=== PATIENT | female | born 1970 | race Caucasian/White ===

== ENCOUNTER 2019-01-28 11:50 | Emergency (ER) | payer MEDICAID ==
[~2019-01-28] VITALS: Ht 157.5 cm; Wt 77.3 kg
[~2019-01-28 11:50] MED LIST: AMLO10TA PO; AMLO10TA13 PO; CARV25TA2 PO; CLON0.1T20 PO; LISI-600 PO; POTA-82 PO; SPIR25TA5 PO
[2019-01-28 12:02] VITALS: BP 186/109
[2019-01-28] MEDS ORDERED: DOXY100C43 PO (13:05)
== END 2019-01-28 13:19 | disposition home or self-care (01) ==
LOC: ER 11:50
DX: L03.115 Cellulitis of right lower limb (principal); I10 Essential (primary) hypertension; F12.90 Cannabis use, unspecified, uncomplicated; Z90.710 Acquired absence of both cervix and uterus; Z88.1 Allergy status to other antibiotic agents; Z91.018 Allergy to other foods; Z79.899 Other long term (current) drug therapy
CPT/HCPCS: 99283

== ENCOUNTER 2019-06-24 08:47 | Inpatient (IN) | payer MEDICAID ==
[~2019-06-24] VITALS: Ht 160 cm; Wt 70.9 kg
[~2019-06-24 08:47] MED LIST changes: +CLON0.1T2 PO; -CLON0.1T20 PO
[2019-06-24] MEDS ORDERED: aspirin 81mg tab.chew PO ONE (09:05)
[2019-06-24 09:47] LABS: BASOPHILS # (AUTO) 0.1 X10'3 (0-0.2); BASOPHILS % (AUTO) 0.8 % (0-1); EOSINOPHILS # (AUTO) 1.2 X10'3 (0-0.9); HEMATOCRIT 38.7 % (35.0-45.0); HEMOGLOBIN 12.4 g/dl (12.0-16.0); LYMPHOCYTES # (AUTO) 2.2 X10'3 (1.1-4.8); LYMPHOCYTES % (AUTO) 16.3 % (21-51); MEAN CORPUSCULAR HEMOGLOBIN 25.5 PG (27.0-31.0); MEAN CORPUSCULAR HGB CONC 32.1 g/dL (33.0-36.5); MEAN CORPUSCULAR VOLUME 79.6 FL (78-98); MONOCYTES # (AUTO) 0.7 X10'3 (0-0.9); MONOCYTES % (AUTO) 5.1 % (2-12); NEUTROPHILS # (AUTO) 9.2 X10'3 (1.8-7.7); NEUTROPHILS % (AUTO) 68.8 % (42-75); PLATELET COUNT 277 X10'3 (140-440); RED BLOOD COUNT 4.86 X10'6 (4.20-5.60); RED CELL DISTRIBUTION WIDTH 17.5 % (11.5-14.5); WHITE BLOOD COUNT 13.4 X10'3 (4.5-11.0)
[2019-06-24 09:57] LABS: D-DIMER 1.43 MG/L FEU (0-0.50); PARTIAL THROMBOPLASTIN TIME 27 SECONDS (22-32)
[2019-06-24 09:58] LABS: ALANINE AMINOTRANSFERASE 31 U/L (12-78); ALBUMIN 2.8 G/DL (3.4-5.0); ALBUMIN/GLOBULIN RATIO 0.8 (1.1-1.5); ALKALINE PHOSPHATASE 99 IU/L (46-116); ANION GAP 7 (8-16); ASPARTATE AMINO TRANSFERASE 27 U/L (10-37); BILIRUBIN,TOTAL 0.7 MG/DL (0.1-1.0); BLOOD UREA NITROGEN 29 MG/DL (7-18); BUN/CREATININE RATIO 22.3 (6.6-38.0); CALCIUM 8.5 MG/DL (8.5-10.1); CHLORIDE 102 MMOL/L (99-107); GLUCOSE 226 MG/DL (70-104); POTASSIUM 3.5 MMOL/L (3.5-5.1); SODIUM 136 MMOL/L (135-145); TOTAL CARBON DIOXIDE 26.6 MMOL/L (24-32); TOTAL PROTEIN 6.4 G/DL (6.4-8.2); eGFR 44 ML/MIN
[2019-06-24] MEDS ORDERED: heparin 10,000 units/1 ML INJ IV PRN ×2 (10:05→21:55)
[2019-06-24] MEDS ORDERED: hydrALAZINE 20mg/ml inj. IV ONE (10:05)
[2019-06-24] MEDS ORDERED: heparin 25,000 UNIT/250ml bag 250 ML IV SCH (10:05)
[2019-06-24] MEDS: heparin 10,000 units/1 ML INJ IV ONE ×2 (10:22→10:24)
[2019-06-24] MEDS ORDERED: iohexol 350MG/ML 100ml bottle IV ONE (10:23)
[2019-06-24] MEDS ORDERED: morphine 4 MG/ML inj SYRINge IV ONE (11:00)
[2019-06-24] MEDS ORDERED: ondansetron/PF 4mg/2ml inj IV ONE (11:00)
[2019-06-24] MEDS ORDERED: magnesium Cl slow-release 64mg tablet PO PRN (13:10)
[2019-06-24] MEDS ORDERED: glucagon, human recombinant 1mg kit SUBCUT PRN (13:10)
[2019-06-24] MEDS ORDERED: albuterol 2.5 MG/3 ML nebule NEB PRN ×2 (13:10)
[2019-06-24] MEDS ORDERED: dextrose ORAL solution 15 GM/59 ML bottle PO PRN ×2 (13:10)
[2019-06-24] MEDS ORDERED: ondansetron/PF 4mg/2ml inj IV PRN (13:10)
[2019-06-24] MEDS ORDERED: insulin Lispro (HumaLOG) vial - multi-dose SQ SCH (13:10)
[2019-06-24] MEDS ORDERED: dextrose 50%-water 50ml dispensing syringe IV PRN ×2 (13:10)
[2019-06-24] MEDS ORDERED: magnesium 2GM in 50ml NS 50 ML IV PRN (13:10)
[2019-06-24] MEDS ORDERED: potassium Cl 20 mEq SR tablet PO PRN (13:10)
[2019-06-24] MEDS ORDERED: acetaminophen 325mg tablet PO PRN (13:10)
[2019-06-24] MEDS ORDERED: MESSAGE TO PHARMACY PO ONE (13:10)
[2019-06-24] MEDS ORDERED: potassium CL 10mEq/100ml bag 100 ML IV PRN ×2 (13:10)
[2019-06-24] MEDS ORDERED: magnesium 4gm in 100ml NS 100 ML IV PRN (13:10)
--- NOTE | 2019-06-24 13:15 | NUR ---
pt. o2 levels started to drop on RA at 84%, notified and placed on 4 liters of oxygen, sats when up to 96% via NC
[2019-06-24] MEDS ORDERED: NO HOME MEDS (14:31)
--- NOTE | 2019-06-24 14:44 | NUR ---
Tried to call report to PCU, the RN receiving patient will call back in 5 minutes.
[2019-06-24 15:00] VITALS: BP 170/108
--- NOTE | 2019-06-24 15:00 | NUR ---
Pt arrived to unit to room 3020 at 1500. Pt oriented to room and call light. Pt alert and oriented and vitals WNL.
--- NOTE | 2019-06-24 15:58 | NUR ---
PAGER ID: [phone] MESSAGE: Re: Patsy Leslie. Room: 3020. Pt's BP 170/109. Pt takes no BP meds at home. -Garry [facility] #[id number] -Dr. Emery paged concerning Pt's blood pressure
[2019-06-24] MEDS: lisinopril 5mg tablet PO SCH (16:42)
[2019-06-24 18:00] VITALS: BP 151/85
--- NOTE | 2019-06-24 18:21 | NUR ---
Patient in room PCU 3020. I have received report from aGrry GIL and had the opportunity to ask questions and assume patient care.
--- NOTE | 2019-06-24 18:35 | NUR ---
Problems reprioritized. Patient report given, questions answered & plan of care reviewed with Franc GIL.
[2019-06-24] MEDS: K and/or MAG REPLACEMENT MC SCH (19:07)
[2019-06-24] MEDS: carVEDilol 3.125mg tablet PO SCH (19:20)
[2019-06-24] MEDS: furosemide 10 MG/1 ML 10ml inj IV SCH (19:20)
--- NOTE | 2019-06-24 20:20 | NUR ---
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
[2019-06-24] MEDS: insulin glargine (Lantus) pen - multi-dose SQ SCH (21:00)
[2019-06-24] MEDS ORDERED: nystatin 15 GM powder TP PRN (21:55)
[2019-06-24 22:00] VITALS: BP 114/70
[2019-06-24] MEDS: HYDROcodone/acetaminophen 5mg/325mg tablet PO PRN (22:37)
[2019-06-24] MEDS: nicotine 14mg patch - 24hr TD SCH (22:37)
[2019-06-25] MEDS: heparin 25,000 UNIT/250ml bag 250 ML IV SCH ×3 (00:40→08:58)
[2019-06-25 02:00] VITALS: BP 160/97
--- NOTE | 2019-06-25 06:00 | NUR ---
Patient resting in bed, offers no complaints, unlabored respirations, heparin gtt at 1500, will continue to monitor.
[2019-06-25 06:08] LABS: BASOPHILS # (AUTO) 0.1 X10'3 (0-0.2); BASOPHILS % (AUTO) 1.1 % (0-1); EOSINOPHILS # (AUTO) 1.9 X10'3 (0-0.9); EOSINOPHILS % (AUTO) 14.5 % (0-6); HEMATOCRIT 36.3 % (35.0-45.0); HEMOGLOBIN 11.7 g/dl (12.0-16.0); LYMPHOCYTES # (AUTO) 2.6 X10'3 (1.1-4.8); LYMPHOCYTES % (AUTO) 20.2 % (21-51); MEAN CORPUSCULAR HEMOGLOBIN 25.6 PG (27.0-31.0); MEAN CORPUSCULAR HGB CONC 32.2 g/dL (33.0-36.5); MEAN CORPUSCULAR VOLUME 79.5 FL (78-98); MEAN PLATELET VOLUME 8.8 FL (7.4-10.4); MONOCYTES # (AUTO) 0.6 X10'3 (0-0.9); NEUTROPHILS # (AUTO) 7.5 X10'3 (1.8-7.7); NEUTROPHILS % (AUTO) 59.2 % (42-75); PLATELET COUNT 261 X10'3 (140-440); RED BLOOD COUNT 4.57 X10'6 (4.20-5.60); RED CELL DISTRIBUTION WIDTH 17.2 % (11.5-14.5); WHITE BLOOD COUNT 12.7 X10'3 (4.5-11.0)
[2019-06-25 06:26] LABS: ALBUMIN 2.6 G/DL (3.4-5.0); ANION GAP 6 (8-16); BLOOD UREA NITROGEN 25 MG/DL (7-18); BUN/CREATININE RATIO 20.2 (6.6-38.0); CALCIUM 8.5 MG/DL (8.5-10.1); CHLORIDE 101 MMOL/L (99-107); CREATININE 1.24 MG/DL (0.40-0.90); GLUCOSE 154 MG/DL (70-104); MAGNESIUM 1.8 MG/DL (1.5-2.4); POTASSIUM 3.4 MMOL/L (3.5-5.1); SODIUM 137 MMOL/L (135-145); TOTAL CARBON DIOXIDE 29.9 MMOL/L (24-32); eGFR 47 ML/MIN
--- NOTE | 2019-06-25 06:37 | NUR ---
Problems reprioritized. Patient report given, questions answered & plan of care reviewed with Anastasia GIL.
[2019-06-25 07:00] VITALS: BP 141/85
[2019-06-25] MEDS ORDERED: nicotine 14mg patch - 24hr TD SCH (08:00)
[2019-06-25] MEDS: K and/or MAG REPLACEMENT MC SCH ×2 (08:00→20:49)
[2019-06-25] MEDS: lisinopril 5mg tablet PO SCH (08:49)
[2019-06-25] MEDS: furosemide 10 MG/1 ML 10ml inj IV SCH ×2 (08:49→21:01)
[2019-06-25] MEDS: carVEDilol 3.125mg tablet PO SCH ×2 (08:49→21:01)
[2019-06-25] MEDS: nicotine 14mg patch - 24hr TD SCH (08:50)
[2019-06-25] MEDS: potassium Cl 20 mEq SR tablet PO PRN ×2 (08:51→21:01)
[2019-06-25] MEDS: HYDROcodone/acetaminophen 5mg/325mg tablet PO PRN ×2 (09:00→16:21)
--- NOTE | 2019-06-25 10:01 | NUR ---
PAGER ID: [phone] MESSAGE: Rm [phone], . Would you like to start lovenox or heparin subcut for VTE prophylaxis? Heparin gtt d/c'd per your order. Thank you, Anastasia Morel.
[2019-06-25 11:00] VITALS: BP 145/98
--- NOTE | 2019-06-25 13:48 | NUR ---
DM Consult: A1C 7.6. Pt admit w/ hx HTN not taking any medication and cardiomegaly, CHF, COPD per MD note. Pt has no hx DM and RN confirms this is new DM DX. RD notified RN that MD must deliver official DX prior to RD visit for DM ed. Pt PO 100% avg heart healthy/carb controlled meals meeting needs. LBM 2. Will monitor for official DM DX and DM ed once more appropriate prior to d/c. Rec: 1. continue heart healthy/carb controlled diet 2. bowel care as needed 3. DM ed following official DM DX by MD 4. wt per rx Addendum: 06/25/19 at [address] Amended: Links added.
[2019-06-25 15:00] VITALS: BP 137/82
--- NOTE | 2019-06-25 18:14 | NUR ---
Problems reprioritized. Patient report given, questions answered & plan of care reviewed with Franc GIL. Patient stable at transfer of care.
--- NOTE | 2019-06-25 18:20 | NUR ---
Patient in room PCU 3020. I have received report from Anastasia GIL and had the opportunity to ask questions and assume patient care.
[2019-06-25 19:00] VITALS: BP 126/74
[2019-06-25] MEDS: insulin glargine (Lantus) pen - multi-dose SQ SCH (21:00)
[2019-06-25] MEDS: heparin, porcine 5000 units/ml vial SQ SCH (21:02)
[2019-06-25 23:00] VITALS: BP 145/86
[2019-06-26 03:00] VITALS: BP 155/92
--- NOTE | 2019-06-26 06:05 | NUR ---
Patient in room PCU 3019. I have received report from Franc GIL and had the opportunity to ask questions and assume patient care. Patient resting at this time, respirations unlabored and the patient offers no complaints.
--- NOTE | 2019-06-26 06:08 | NUR ---
Problems reprioritized. Patient report given, questions answered & plan of care reviewed with Anastasia GIL.
[2019-06-26 06:48] LABS: BASOPHILS # (AUTO) 0.1 X10'3 (0-0.2); BASOPHILS % (AUTO) 0.6 % (0-1); EOSINOPHILS # (AUTO) 1.7 X10'3 (0-0.9); EOSINOPHILS % (AUTO) 15.2 % (0-6); HEMATOCRIT 37.6 % (35.0-45.0); LYMPHOCYTES # (AUTO) 1.6 X10'3 (1.1-4.8); LYMPHOCYTES % (AUTO) 13.9 % (21-51); MEAN CORPUSCULAR HEMOGLOBIN 25.2 PG (27.0-31.0); MEAN CORPUSCULAR HGB CONC 31.9 g/dL (33.0-36.5); MEAN CORPUSCULAR VOLUME 79.2 FL (78-98); MEAN PLATELET VOLUME 8.9 FL (7.4-10.4); MONOCYTES # (AUTO) 0.8 X10'3 (0-0.9); MONOCYTES % (AUTO) 7.2 % (2-12); NEUTROPHILS # (AUTO) 7.2 X10'3 (1.8-7.7); NEUTROPHILS % (AUTO) 63.1 % (42-75); PLATELET COUNT 272 X10'3 (140-440); RED BLOOD COUNT 4.74 X10'6 (4.20-5.60); RED CELL DISTRIBUTION WIDTH 17.2 % (11.5-14.5); WHITE BLOOD COUNT 11.5 X10'3 (4.5-11.0)
[2019-06-26 07:00] VITALS: BP 150/93
[2019-06-26 07:00] LABS: ALBUMIN 2.5 G/DL (3.4-5.0); ANION GAP 4 (8-16); BLOOD UREA NITROGEN 34 MG/DL (7-18); BUN/CREATININE RATIO 25.2 (6.6-38.0); CALCIUM 8.6 MG/DL (8.5-10.1); CHLORIDE 102 MMOL/L (99-107); CREATININE 1.35 MG/DL (0.40-0.90); GLUCOSE 146 MG/DL (70-104); MAGNESIUM 1.8 MG/DL (1.5-2.4); SODIUM 138 MMOL/L (135-145); eGFR 42 ML/MIN
[2019-06-26] MEDS: furosemide 10 MG/1 ML 10ml inj IV SCH (07:29)
[2019-06-26] MEDS: heparin, porcine 5000 units/ml vial SQ SCH (07:30)
[2019-06-26] MEDS: lisinopril 5mg tablet PO SCH (07:30)
[2019-06-26] MEDS: nicotine 14mg patch - 24hr TD SCH (07:30)
[2019-06-26] MEDS: carVEDilol 3.125mg tablet PO SCH (07:30)
[2019-06-26] MEDS: HYDROcodone/acetaminophen 5mg/325mg tablet PO PRN (07:31)
[2019-06-26] MEDS: K and/or MAG REPLACEMENT MC SCH (08:00)
[2019-06-26 11:00] VITALS: BP 160/92
[2019-06-26] MEDS ORDERED: LISI-642 PO (11:01)
[2019-06-26] MEDS ORDERED: COR3.125T PO ×2 (11:01→11:17)
[2019-06-26] MEDS ORDERED: METF500T PO (11:01)
[2019-06-26] MEDS ORDERED: FURO-149 PO (11:07)
--- NOTE | 2019-06-26 11:33 | NUR ---
PAGER ID: [phone] MESSAGE: Anival 3020Priest. Pt is c/o headache and would like Tylenol please. Thank you, Anastasia [phone]
[2019-06-26] MEDS ORDERED: acetaminophen 325mg tablet PO PRN (12:15)
--- NOTE | 2019-06-26 15:39 | NUR ---
Patient spoke with information security risk analyst and explained that she had not been educated by the MD regarding her new diagnosis of Diabetes. I offered to call the MD so that she could go over any questions she might have and get some education, the patient declined and said no. Educated patient and read the diabetic survival skills with her, encouraged her to make a followup randi upon discharge.
--- NOTE | 2019-06-26 16:37 | NUR ---
Patient discharged home at 1612 with boyfriend. Patient reviewed discharge packet before signing. Patient called [facility] and found that she will need to begin care through the [place] office for a PCP. Patient is going to get new patient paperwork from them and make a follow up appointment. Patient stated she understands the importance of following up with a Pcp regarding her new DM type 2 and CHF to ensure she gets referred to a m48 m60 armor crewman. All belongings were sent with patient and PIV was removed and telemetry monitoring was d/c'd. Patient was stable at discharge and wheeled down by staff. Left via private vehicle and Rx were called in and faxed to [facility] on [address].
--- NOTE | 2019-06-26 17:24 | NUR ---
F/u: Pt seen by RD and reports nobody has reviewed DM diagnoses or talked about GLU management but pt also reports no longer wants to see covering MD this admit. Unable to provide verbal DM ed given pt has no official DX that was reviewed with her. RN did report reviewing GLU management w/ pt following RD visit today. RD provided RD contact information, CDE course information, and written GLU management handout and encouraged pt to f/u w/ PCP regarding GLU management upon d/c. Addendum: 06/26/19 at [address] Amended: Links added.
== END 2019-06-26 16:11 | disposition home or self-care (01) | DRG 190 ==
LOC: ER 08:48 → ED HOLD 13:10 → PCU 3S 15:03
PROVIDERS: ADMIT Internal Medicine; ATTEND Internal Medicine
DX: I21.A1 Myocardial infarction type 2 (principal); I50.23 Acute on chronic systolic (congestive) heart failure; N17.9 Acute kidney failure, unspecified; E11.22 Type 2 diabetes mellitus with diabetic chronic kidney disease; J44.9 Chronic obstructive pulmonary disease, unspecified; N18.9 Chronic kidney disease, unspecified; I13.0 Hypertensive heart and chronic kidney disease with heart failure and stage 1 through stage 4 chronic kidney disease, or unspecified chronic kidney disease; F17.200 Nicotine dependence, unspecified, uncomplicated; I25.2 Old myocardial infarction; Z78.9 Other specified health status; Z79.84 Long term (current) use of oral hypoglycemic drugs; Z86.711 Personal history of pulmonary embolism; Z86.74 Personal history of sudden cardiac arrest; Z90.710 Acquired absence of both cervix and uterus
CPT/HCPCS: 36415; 71045; 71275; 80048; 80053; 82948; 83036; 83735; 83880; 84484; 85025; 85379; 85610; 85730; 87081; 93005; 93306; 94760; 96374; 96375; 99291; G0378; J0360; J1644; J1815; J1940; J2270; J2405; Q9967

== ENCOUNTER 2019-06-28 07:34 | Inpatient (IN) | payer MEDICAID ==
[~2019-06-28] VITALS: Ht 162.6 cm; Wt 89.0 kg
[~2019-06-28 07:34] MED LIST changes: -AMLO10TA PO; -AMLO10TA13 PO; -CARV25TA2 PO; -CLON0.1T2 PO; +COR3.125T PO; +FURO-149 PO; -LISI-600 PO; +LISI-642 PO; +METF500T PO; -POTA-82 PO; -SPIR25TA5 PO
[2019-06-28 08:14] LABS: BASOPHILS # (AUTO) 0.1 X10'3 (0-0.2); BASOPHILS % (AUTO) 0.8 % (0-1); EOSINOPHILS # (AUTO) 1.8 X10'3 (0-0.9); HEMATOCRIT 39.3 % (35.0-45.0); HEMOGLOBIN 12.4 g/dl (12.0-16.0); LYMPHOCYTES # (AUTO) 1.9 X10'3 (1.1-4.8); MEAN CORPUSCULAR HGB CONC 31.5 g/dL (33.0-36.5); MEAN CORPUSCULAR VOLUME 79.3 FL (78-98); MEAN PLATELET VOLUME 8.5 FL (7.4-10.4); MONOCYTES # (AUTO) 0.8 X10'3 (0-0.9); MONOCYTES % (AUTO) 5.7 % (2-12); NEUTROPHILS # (AUTO) 10.1 X10'3 (1.8-7.7); NEUTROPHILS % (AUTO) 68.5 % (42-75); PLATELET COUNT 285 X10'3 (140-440); RED BLOOD COUNT 4.95 X10'6 (4.20-5.60); RED CELL DISTRIBUTION WIDTH 17.8 % (11.5-14.5); WHITE BLOOD COUNT 14.7 X10'3 (4.5-11.0)
[2019-06-28 08:30] LABS: ALANINE AMINOTRANSFERASE 34 U/L (12-78); ALBUMIN 2.9 G/DL (3.4-5.0); ALBUMIN/GLOBULIN RATIO 0.8 (1.1-1.5); ALKALINE PHOSPHATASE 101 IU/L (46-116); ANION GAP 7 (8-16); ASPARTATE AMINO TRANSFERASE 28 U/L (10-37); BILIRUBIN,TOTAL 0.4 MG/DL (0.1-1.0); BLOOD UREA NITROGEN 33 MG/DL (7-18); BUN/CREATININE RATIO 28.2 (6.6-38.0); CALCIUM 9.2 MG/DL (8.5-10.1); CHLORIDE 104 MMOL/L (99-107); CREATININE 1.17 MG/DL (0.40-0.90); GLUCOSE 171 MG/DL (70-104); POTASSIUM 5.1 MMOL/L (3.5-5.1); SODIUM 137 MMOL/L (135-145); TOTAL CARBON DIOXIDE 26.3 MMOL/L (24-32); TOTAL PROTEIN 6.6 G/DL (6.4-8.2); eGFR 50 ML/MIN
[2019-06-28] MEDS ORDERED: LORazepam 2 mg/ml vial IV ONE (08:30)
[2019-06-28] MEDS ORDERED: nitroGLYCERIN 1gm ointment UD TP ONE (08:30)
[2019-06-28] MEDS ORDERED: furosemide 10 MG/1 ML 10ml inj IV ONE (08:30)
[2019-06-28] MEDS ORDERED: nitroGLYCERIN 0.4mg SUBLingual tab SL PRN ×2 (08:40→12:30)
[2019-06-28] MEDS ORDERED: cloNIDine 0.1 mg tablet PO ONE (09:20)
[2019-06-28] MEDS ORDERED: metoprolol tartrate 1mg/ml inj IV ONE (09:50)
[2019-06-28] MEDS ORDERED: nitroGLYCERIN-Tridil 50MG/D5W 250 ML IV PRN ×2 (10:39→12:34)
[2019-06-28] MEDS ORDERED: enoxaparin 100mg/ml syringe SUBCUT ONE (10:40)
[2019-06-28] MEDS ORDERED: aspirin 81mg tab.chew PO ONE (10:40)
[2019-06-28 11:51] LABS: ETHANOL < 0.010 GM/DL (0.0-0.010)
[2019-06-28] MEDS ORDERED: HYDROcodone/acetaminophen 5mg/325mg tablet PO PRN (12:30)
[2019-06-28] MEDS ORDERED: mag hydrox/Alum hydrox/simeth 30ml oral suspension PO PRN (12:30)
[2019-06-28] MEDS ORDERED: magnesium hydroxide 30ml (MOM) UD suspension PO PRN (12:30)
[2019-06-28] MEDS ORDERED: morphine 2 MG/ML inj. syringe IV PRN ×2 (12:30→17:30)
[2019-06-28] MEDS ORDERED: HYDROcodone/acetaminophen 10/325mg tab PO PRN (12:30)
[2019-06-28] MEDS ORDERED: ondansetron/PF 4mg/2ml inj IV PRN (12:30)
[2019-06-28] MEDS ORDERED: acetaminophen 325mg tablet PO PRN (12:30)
--- NOTE | 2019-06-28 12:34 | NUR ---
Assumed care of patient. Patient sleeping in bed, respirations even. No distress or needs at this time noted. Nitro drip infusing at 25mic/hr. Will continue to monitor.
[2019-06-28] MEDS ORDERED: CARV3.1244 PO (13:00)
[2019-06-28] MEDS ORDERED: LISI-604 PO (13:00)
[2019-06-28] MEDS ORDERED: FURO40TA4 PO (13:00)
[2019-06-28] MEDS ORDERED: METF-950 PO (13:00)
--- NOTE | 2019-06-28 13:06 | NUR ---
Patient assisted up to bedside commode. Patient reports THORNTON, but otherwise no pain. pain medication requested from provider for THORNTON.
[2019-06-28] MEDS ORDERED: acetaminophen 325mg tablet PO ONE (13:10)
--- NOTE | 2019-06-28 13:44 | NUR ---
Spoke to Dr. Martinez via phone and verbal order to d/c Nitor drip and keep Nitro paste in place.
--- NOTE | 2019-06-28 14:57 | NUR ---
Patient eating lunch tray. Patient self ambulated to bedside commode. Patient assisted with adjusting position in bed. No other needs at this time.
--- NOTE | 2019-06-28 16:15 | NUR ---
Called to give report, floor staff will call back when room is assigned to RN.
--- NOTE | 2019-06-28 16:29 | NUR ---
Called again to try to give report. Floor RN will call back in 5 min.
[2019-06-28 16:45] VITALS: BP 174/103
[2019-06-28 18:00] VITALS: BP 178/105
--- NOTE | 2019-06-28 18:40 | NUR ---
Patient in room PCU 3010. I have received report from Adriana GIL and had the opportunity to ask questions and assume patient care.
[2019-06-28 19:00] LABS: URINE AMPHETAMINE SCREEN NEGATIVE (Neg); URINE BARBITUATE SCREEN NEGATIVE (Neg); URINE BENZODIAZEPINES SCREEN NEGATIVE (Neg); URINE CANNABINOID SCREEN NEGATIVE (Neg); URINE COCAINE SCREEN NEGATIVE (Neg); URINE METHADONE SCREEN NEGATIVE (Neg); URINE OPIATE SCREEN NEGATIVE (Neg); URINE PHENCYCLIDINE SCREEN NEGATIVE (Neg)
[2019-06-28] MEDS: morphine 2 MG/ML inj. syringe IV PRN (19:33)
[2019-06-28] MEDS ORDERED: metoprolol tartrate 50mg tablet PO SCH (20:00)
[2019-06-28 22:00] VITALS: BP 154/100
[2019-06-29 02:00] VITALS: BP 177/110
[2019-06-29 05:48] LABS: BASOPHILS # (AUTO) 0.1 X10'3 (0-0.2); EOSINOPHILS # (AUTO) 1.9 X10'3 (0-0.9); EOSINOPHILS % (AUTO) 14.4 % (0-6); HEMOGLOBIN 12.5 g/dl (12.0-16.0); LYMPHOCYTES # (AUTO) 2.6 X10'3 (1.1-4.8); LYMPHOCYTES % (AUTO) 19.6 % (21-51); MEAN CORPUSCULAR HEMOGLOBIN 25.4 PG (27.0-31.0); MEAN CORPUSCULAR VOLUME 79.3 FL (78-98); MEAN PLATELET VOLUME 8.5 FL (7.4-10.4); MONOCYTES # (AUTO) 0.8 X10'3 (0-0.9); MONOCYTES % (AUTO) 6.2 % (2-12); NEUTROPHILS # (AUTO) 7.8 X10'3 (1.8-7.7); NEUTROPHILS % (AUTO) 58.8 % (42-75); PLATELET COUNT 275 X10'3 (140-440); RED BLOOD COUNT 4.92 X10'6 (4.20-5.60); RED CELL DISTRIBUTION WIDTH 17.7 % (11.5-14.5); WHITE BLOOD COUNT 13.3 X10'3 (4.5-11.0)
[2019-06-29 05:57] LABS: ALBUMIN 2.8 G/DL (3.4-5.0); ANION GAP 1 (8-16); BLOOD UREA NITROGEN 35 MG/DL (7-18); BUN/CREATININE RATIO 26.7 (6.6-38.0); CALCIUM 9.1 MG/DL (8.5-10.1); CHLORIDE 105 MMOL/L (99-107); CREATININE 1.31 MG/DL (0.40-0.90); GLUCOSE 127 MG/DL (70-104); POTASSIUM 5.2 MMOL/L (3.5-5.1); SODIUM 138 MMOL/L (135-145); TOTAL CARBON DIOXIDE 31.7 MMOL/L (24-32); eGFR 44 ML/MIN
[2019-06-29 06:00] VITALS: BP 164/97
--- NOTE | 2019-06-29 06:16 | NUR ---
Patient in room PCU 3010. I have received report from LOUISE Rand and had the opportunity to ask questions and assume patient care.
--- NOTE | 2019-06-29 06:17 | NUR ---
Problems reprioritized. Patient report given, questions answered & plan of care reviewed with Pedro GIL.
[2019-06-29] MEDS: lisinopril 10 MG tablet PO SCH ×3 (08:00→21:16)
[2019-06-29] MEDS ORDERED: lisinopril 10 MG tablet PO SCH (08:00)
[2019-06-29] MEDS ORDERED: metoprolol tartrate 50mg tablet PO SCH (08:00)
[2019-06-29] MEDS: nitroGLYCERIN 0.4mg/hour patch TD SCH (08:27)
[2019-06-29] MEDS: aspirin 81mg tablet.DR PO SCH (08:31)
[2019-06-29] MEDS ORDERED: dextrose ORAL solution 15 GM/59 ML bottle PO PRN ×2 (09:30)
[2019-06-29] MEDS ORDERED: insulin Lispro (HumaLOG) vial - multi-dose SQ SCH (09:30)
[2019-06-29] MEDS ORDERED: dextrose 50%-water 50ml dispensing syringe IV PRN ×2 (09:30)
[2019-06-29] MEDS ORDERED: glucagon, human recombinant 1mg kit SUBCUT PRN (09:30)
[2019-06-29] MEDS: morphine 2 MG/ML inj. syringe IV PRN ×2 (09:40→14:45)
[2019-06-29 11:00] VITALS: BP 130/70
--- NOTE | 2019-06-29 14:20 | NUR ---
PAGER ID: [phone] MESSAGE: RM [phone] Patsy Leslie was hoping she could get a nicotine patch order. LOUISE Vasquez Ext [phone]
[2019-06-29] MEDS: nicotine 21mg patch - 24 hr TD SCH (14:44)
[2019-06-29 15:00] VITALS: BP 117/73
--- NOTE | 2019-06-29 18:15 | NUR ---
Patient in room PCU 3010. I have received report from Pedro GIL and had the opportunity to ask questions and assume patient care.
--- NOTE | 2019-06-29 18:19 | NUR ---
Problems reprioritized. Patient report given, questions answered & plan of care reviewed with LOUISE Pang. Addendum: 06/29/19 at 1824 by Pedro Martines RN Correction report given to LOUISE Honeycutt.
[2019-06-29 19:00] VITALS: BP 128/74
[2019-06-29] MEDS: insulin glargine (Lantus) pen - multi-dose SQ SCH (21:00)
[2019-06-29] MEDS: carvedilol 6.25mg tablet PO SCH (21:16)
[2019-06-29 23:00] VITALS: BP 130/75
[2019-06-30 03:00] VITALS: BP 120/71
[2019-06-30 06:00] VITALS: BP 143/93
[2019-06-30 06:03] LABS: BASOPHILS # (AUTO) 0.1 X10'3 (0-0.2); BASOPHILS % (AUTO) 0.9 % (0-1); EOSINOPHILS % (AUTO) 16.5 % (0-6); HEMATOCRIT 36.8 % (35.0-45.0); HEMOGLOBIN 11.9 g/dl (12.0-16.0); LYMPHOCYTES # (AUTO) 2.7 X10'3 (1.1-4.8); MEAN CORPUSCULAR HEMOGLOBIN 25.3 PG (27.0-31.0); MEAN CORPUSCULAR HGB CONC 32.2 g/dL (33.0-36.5); MEAN CORPUSCULAR VOLUME 78.7 FL (78-98); MEAN PLATELET VOLUME 8.6 FL (7.4-10.4); MONOCYTES # (AUTO) 0.8 X10'3 (0-0.9); MONOCYTES % (AUTO) 6.6 % (2-12); NEUTROPHILS # (AUTO) 6.3 X10'3 (1.8-7.7); PLATELET COUNT 233 X10'3 (140-440); RED BLOOD COUNT 4.68 X10'6 (4.20-5.60); RED CELL DISTRIBUTION WIDTH 17.5 % (11.5-14.5); WHITE BLOOD COUNT 11.9 X10'3 (4.5-11.0)
--- NOTE | 2019-06-30 06:08 | NUR ---
Patient in room PCU 3010. I have received report from Tangela GIL and had the opportunity to ask questions and assume patient care.
[2019-06-30 06:22] LABS: ALBUMIN 2.8 G/DL (3.4-5.0); ANION GAP 3 (8-16); BLOOD UREA NITROGEN 30 MG/DL (7-18); BUN/CREATININE RATIO 25.2 (6.6-38.0); CHLORIDE 104 MMOL/L (99-107); CREATININE 1.19 MG/DL (0.40-0.90); GLUCOSE 133 MG/DL (70-104); POTASSIUM 4.8 MMOL/L (3.5-5.1); SODIUM 136 MMOL/L (135-145); TOTAL CARBON DIOXIDE 28.6 MMOL/L (24-32); eGFR 49 ML/MIN
--- NOTE | 2019-06-30 06:38 | NUR ---
Problems reprioritized. Patient report given, questions answered & plan of care reviewed with Adriana GIL.
[2019-06-30] MEDS: carvedilol 6.25mg tablet PO SCH ×2 (08:12→20:14)
[2019-06-30] MEDS: nicotine 21mg patch - 24 hr TD SCH ×2 (08:13→08:38)
[2019-06-30] MEDS: nitroGLYCERIN 0.4mg/hour patch TD SCH (08:13)
[2019-06-30] MEDS: lisinopril 10 MG tablet PO SCH ×2 (08:13→20:14)
[2019-06-30] MEDS: aspirin 81mg tablet.DR PO SCH (08:14)
[2019-06-30] MEDS: furosemide 40 MG/4 ML oral solution UD cup PO SCH (08:38)
[2019-06-30] MEDS: acetaminophen 325mg tablet PO PRN ×2 (08:41→17:31)
--- NOTE | 2019-06-30 10:19 | NUR ---
Jeremías reaction Night terrors last night, reported by Pt.
[2019-06-30 11:00] VITALS: BP 159/71
[2019-06-30] MEDS: morphine 2 MG/ML inj. syringe IV PRN ×2 (13:24→17:27)
[2019-06-30 15:00] VITALS: BP 139/89
[2019-06-30 18:00] VITALS: BP 168/96
--- NOTE | 2019-06-30 18:59 | NUR ---
Patient in room PCU 3010. I have received report from LOUISE HOPKINS and had the opportunity to ask questions and assume patient care.
[2019-06-30] MEDS: insulin glargine (Lantus) pen - multi-dose SQ SCH (21:00)
[2019-06-30 22:00] VITALS: BP 163/88
[2019-07-01 02:00] VITALS: BP 159/98
[2019-07-01 06:00] VITALS: BP_SYST 139; BP_SYST 143; BP_DIAS 87; BP_DIAS 89; BP_DIAS 93
--- NOTE | 2019-07-01 06:14 | NUR ---
Problems reprioritized. Patient report given, questions answered & plan of care reviewed with LOUISE Wright.
[2019-07-01 07:09] LABS: BASOPHILS # (AUTO) 0.1 X10'3 (0-0.2); EOSINOPHILS # (AUTO) 1.9 X10'3 (0-0.9); HEMATOCRIT 38.9 % (35.0-45.0); HEMOGLOBIN 12.5 g/dl (12.0-16.0); LYMPHOCYTES # (AUTO) 2.3 X10'3 (1.1-4.8); LYMPHOCYTES % (AUTO) 21.6 % (21-51); MEAN CORPUSCULAR HEMOGLOBIN 25.2 PG (27.0-31.0); MEAN CORPUSCULAR HGB CONC 32.2 g/dL (33.0-36.5); MEAN CORPUSCULAR VOLUME 78.5 FL (78-98); MEAN PLATELET VOLUME 8.4 FL (7.4-10.4); MONOCYTES # (AUTO) 0.7 X10'3 (0-0.9); MONOCYTES % (AUTO) 6.2 % (2-12); NEUTROPHILS # (AUTO) 5.6 X10'3 (1.8-7.7); NEUTROPHILS % (AUTO) 53.2 % (42-75); PLATELET COUNT 253 X10'3 (140-440); RED BLOOD COUNT 4.96 X10'6 (4.20-5.60); RED CELL DISTRIBUTION WIDTH 17.6 % (11.5-14.5); WHITE BLOOD COUNT 10.4 X10'3 (4.5-11.0)
[2019-07-01 07:16] LABS: ALBUMIN 2.9 G/DL (3.4-5.0); ANION GAP 5 (8-16); BLOOD UREA NITROGEN 31 MG/DL (7-18); BUN/CREATININE RATIO 21.8 (6.6-38.0); CHLORIDE 105 MMOL/L (99-107); CREATININE 1.42 MG/DL (0.40-0.90); GLUCOSE 119 MG/DL (70-104); POTASSIUM 4.6 MMOL/L (3.5-5.1); SODIUM 140 MMOL/L (135-145); eGFR 40 ML/MIN
[2019-07-01] MEDS: furosemide 40 MG/4 ML oral solution UD cup PO SCH (08:58)
[2019-07-01] MEDS: carvedilol 6.25mg tablet PO SCH (08:58)
[2019-07-01 08:59] VITALS: BP_SYST 139
[2019-07-01] MEDS: aspirin 81mg tablet.DR PO SCH (08:59)
[2019-07-01] MEDS: lisinopril 10 MG tablet PO SCH (08:59)
[2019-07-01] MEDS: nicotine 21mg patch - 24 hr TD SCH (09:01)
[2019-07-01] MEDS ORDERED: LISI10TA4 PO (11:18)
[2019-07-01] MEDS ORDERED: NICO-687 TD (11:18)
[2019-07-01] MEDS ORDERED: ASPI-1071 PO (11:18)
[2019-07-01] MEDS ORDERED: CARV6.253 PO (11:18)
[2019-07-01] MEDS ORDERED: ATOR10TA PO (13:26)
[2019-07-01] MEDS ORDERED: GLYB2.5T4 PO (13:26)
--- NOTE | 2019-07-01 14:35 | NUR ---
Discussion: Discharge needs, low salt diet, medications new prescriptions, Quit smoking plan, Nicotine Patches and tapering, How to get a PCP, How to ask for an appointment with Dr. Arango the video library assistant. Missing belonging / Shoes. Search for shoes. Home stress and coping. Family support Mother and Aunt.
== END 2019-07-01 13:30 | disposition home or self-care (01) | DRG 194 ==
LOC: ER 07:34 → ED HOLD 12:26 → PCU 3S 16:46
PROVIDERS: ADMIT Internal Medicine; ATTEND Internal Medicine
DX: I13.0 Hypertensive heart and chronic kidney disease with heart failure and stage 1 through stage 4 chronic kidney disease, or unspecified chronic kidney disease (principal); I21.A1 Myocardial infarction type 2; E11.22 Type 2 diabetes mellitus with diabetic chronic kidney disease; I50.23 Acute on chronic systolic (congestive) heart failure; I42.9 Cardiomyopathy, unspecified; Z90.710 Acquired absence of both cervix and uterus; F12.90 Cannabis use, unspecified, uncomplicated; F15.10 Other stimulant abuse, uncomplicated; N18.3 Chronic kidney disease, stage 3 (moderate); Z87.891 Personal history of nicotine dependence; Z98.51 Tubal ligation status; Z88.1 Allergy status to other antibiotic agents; Z88.8 Allergy status to other drugs, medicaments and biological substances; Z87.01 Personal history of pneumonia (recurrent); Z86.711 Personal history of pulmonary embolism; Z82.49 Family history of ischemic heart disease and other diseases of the circulatory system; Z86.718 Personal history of other venous thrombosis and embolism; Z79.82 Long term (current) use of aspirin; Z79.899 Other long term (current) drug therapy; Z82.41 Family history of sudden cardiac death; Z82.5 Family history of asthma and other chronic lower respiratory diseases
CPT/HCPCS: 36415; 71045; 80048; 80053; 80305; 80320; 82948; 83880; 84443; 84484; 85025; 87081; 93005; 96372; 96374; 96375; 99291; G0378; J1650; J1815; J1940; J2060; J2270; J3490

== ENCOUNTER 2019-08-24 21:23 | Inpatient (IN) | payer MEDICAID ==
[~2019-08-24] VITALS: Ht 157.5 cm; Wt 70.9 kg
[~2019-08-24 21:23] MED LIST changes: +ASPI-1071 PO; +ATOR10TA PO; +CARV6.253 PO; -COR3.125T PO; -FURO-149 PO; +FURO40TA4 PO; +GLYB2.5T4 PO; -LISI-642 PO; +LISI10TA4 PO; +METF-950 PO; -METF500T PO; +NICO-687 TD
[2019-08-24] MEDS ORDERED: nitroGLYCERIN-Tridil 50MG/D5W 250 ML IV SCH (21:55)
[2019-08-24] MEDS ORDERED: furosemide 10 MG/1 ML 10ml inj IV ONE (22:10)
[2019-08-24 22:20] LABS: ABG BASE EXCESS -2.2 mmol/L (-2.0-3.0); ABG HCO3 20.3 mmol/L (22.0-26.0); ABG OXYGEN SATURATION 95.5 % (95-98); ABG PCO2 (T) 29.2 mmHg (35.0-45.0); ABG PH (T) 7.461 (7.350-7.450); ABG PO2 (T) 79.4 mmHg (83-108); ALLEN'S TEST POSITIVE; FMetHb 0.1 % (0.3-1.12); FO2Hb 93.5 % (94-100); PATIENT TEMPERATURE 37.4; TOTAL HEMOGLOBIN 13.7 G/dl (12.0-16.0)
[2019-08-24 22:21] LABS: BASOPHILS # (AUTO) 0.1 X10'3 (0-0.2); BASOPHILS % (AUTO) 0.8 % (0-1); EOSINOPHILS # (AUTO) 1.6 X10'3 (0-0.9); EOSINOPHILS % (AUTO) 10.7 % (0-6); HEMATOCRIT 41.4 % (35.0-45.0); LYMPHOCYTES # (AUTO) 2.4 X10'3 (1.1-4.8); LYMPHOCYTES % (AUTO) 16.3 % (21-51); MEAN CORPUSCULAR HEMOGLOBIN 24.7 PG (27.0-31.0); MEAN CORPUSCULAR HGB CONC 31.4 g/dL (33.0-36.5); MEAN CORPUSCULAR VOLUME 78.7 FL (78-98); MEAN PLATELET VOLUME 8.5 FL (7.4-10.4); MONOCYTES # (AUTO) 0.6 X10'3 (0-0.9); MONOCYTES % (AUTO) 4.4 % (2-12); NEUTROPHILS # (AUTO) 9.9 X10'3 (1.8-7.7); NEUTROPHILS % (AUTO) 67.8 % (42-75); PLATELET COUNT 296 X10'3 (140-440); RED BLOOD COUNT 5.25 X10'6 (4.20-5.60); WHITE BLOOD COUNT 14.6 X10'3 (4.5-11.0)
[2019-08-24 22:33] LABS: PARTIAL THROMBOPLASTIN TIME 28 SECONDS (22-32)
--- NOTE | 2019-08-24 22:36 | NUR ---
pt tolerating bipap well
[2019-08-24 22:40] LABS: ALANINE AMINOTRANSFERASE 29 U/L (12-78); ALBUMIN/GLOBULIN RATIO 0.8 (1.1-1.5); ALKALINE PHOSPHATASE 111 IU/L (46-116); ANION GAP 9 (8-16); ASPARTATE AMINO TRANSFERASE 23 U/L (10-37); BLOOD UREA NITROGEN 34 MG/DL (7-18); CALCIUM 8.7 MG/DL (8.5-10.1); CHLORIDE 103 MMOL/L (99-107); CREATININE 1.31 MG/DL (0.40-0.90); GLUCOSE 190 MG/DL (70-104); POTASSIUM 4.6 MMOL/L (3.5-5.1); SODIUM 135 MMOL/L (135-145); TOTAL PROTEIN 6.8 G/DL (6.4-8.2); eGFR 44 ML/MIN
[2019-08-24 22:47] LABS: C-REACTIVE PROTEIN 0.95 MG/DL (0.0-0.5)
--- NOTE | 2019-08-24 23:08 | NUR ---
Dr. Pitt in to see the patient, he took off her bipap to talk with her. Dr. Gonzalez was just in and instructed me to put the NTG at 50, so done.
[2019-08-24 23:10] LABS: URINE AMPHETAMINE SCREEN POSITIVE (Neg); URINE BARBITUATE SCREEN NEGATIVE (Neg); URINE BENZODIAZEPINES SCREEN NEGATIVE (Neg); URINE CANNABINOID SCREEN NEGATIVE (Neg); URINE COCAINE SCREEN NEGATIVE (Neg); URINE METHADONE SCREEN NEGATIVE (Neg); URINE OPIATE SCREEN NEGATIVE (Neg); URINE PHENCYCLIDINE SCREEN NEGATIVE (Neg)
[2019-08-24] MEDS ORDERED: metoprolol tartrate 1mg/ml inj IV ONE (23:15)
[2019-08-24] MEDS ORDERED: enalaprilat dihydrate 2.5mg/2ml vial IV ONE (23:15)
[2019-08-24] MEDS ORDERED: magnesium 4gm in 100ml NS 100 ML IV PRN (23:25)
[2019-08-24] MEDS ORDERED: potassium CL 10mEq/100ml bag 100 ML IV PRN ×2 (23:25)
[2019-08-24] MEDS ORDERED: magnesium hydroxide 30ml (MOM) UD suspension PO PRN (23:25)
[2019-08-24] MEDS ORDERED: mag hydrox/Alum hydrox/simeth 30ml oral suspension PO PRN (23:25)
[2019-08-24] MEDS ORDERED: magnesium Cl slow-release 64mg tablet PO PRN (23:25)
[2019-08-24] MEDS ORDERED: acetaminophen 325mg tablet PO PRN (23:25)
[2019-08-24] MEDS ORDERED: potassium Cl 20 mEq SR tablet PO PRN ×2 (23:25)
[2019-08-24] MEDS ORDERED: ondansetron/PF 4mg/2ml inj IV PRN (23:25)
[2019-08-24] MEDS ORDERED: magnesium 2GM in 50ml NS 50 ML IV PRN (23:25)
[2019-08-24] MEDS ORDERED: dextrose ORAL solution 15 GM/59 ML bottle PO PRN ×2 (23:30)
[2019-08-24] MEDS ORDERED: dextrose 50%-water 50ml dispensing syringe IV PRN ×2 (23:30)
[2019-08-24] MEDS ORDERED: insulin Lispro (HumaLOG) vial - multi-dose SQ SCH (23:30)
[2019-08-24] MEDS ORDERED: glucagon, human recombinant 1mg kit SUBCUT PRN (23:30)
[2019-08-24] MEDS ORDERED: MESSAGE TO PHARMACY PO ONE (23:30)
--- NOTE | 2019-08-24 23:30 | NUR ---
Arrived at 2330 PCU 3026B. The gait was steady ambulated to bed out of the gurney. A&Ox4 and vital signs on arrival were: BP 165/105, HR 81, 99% on 2L NC, RR 24, temp 99F Patient was oriented to the room, educated on tele monitoring, and MRSA swab.
[2019-08-24 23:39] LABS: ANISOCYTOSIS 3+; MICROCYTOSIS 1+; PLATELET ESTIMATE NORMAL
[2019-08-24 23:40] LABS: ELLIPTOCYTES 1+
[2019-08-24 23:55] LABS: HEMOGLOBIN A1C 6.9 % (4.5-6.2)
[2019-08-25] VITALS (15 sets, daily range): BP systolic 133–182; BP diastolic 70–112
[2019-08-25] MEDS ORDERED: metoprolol tartrate 1mg/ml inj IV ONE (03:00)
[2019-08-25] MEDS ORDERED: nitroGLYCERIN-Tridil 50MG/D5W 250 ML IV SCH (04:25)
[2019-08-25] MEDS ORDERED: carVEDilol 3.125mg tablet PO ONE (04:45)
--- NOTE | 2019-08-25 05:06 | NUR ---
notified for BP 180/112 on Nitro gtt. New orders were given for metoprolol IV push 5mg.
--- NOTE | 2019-08-25 05:09 | NUR ---
notified for high BP of 163/104 after 1.5 hours being given metoprolol IV push 5mg. Addendum: 08/25/19 at 0510 by Magy Rubalcava RN New order for Coreg PO home dosage give now.
[2019-08-25 05:39] LABS: ALANINE AMINOTRANSFERASE 24 U/L (12-78); ALBUMIN 2.9 G/DL (3.4-5.0); ALBUMIN/GLOBULIN RATIO 0.8 (1.1-1.5); ALKALINE PHOSPHATASE 95 IU/L (46-116); ANION GAP 9 (8-16); ASPARTATE AMINO TRANSFERASE 22 U/L (10-37); BILIRUBIN,TOTAL 1.2 MG/DL (0.1-1.0); BLOOD UREA NITROGEN 31 MG/DL (7-18); BUN/CREATININE RATIO 25.6 (6.6-38.0); CALCIUM 8.4 MG/DL (8.5-10.1); CHLORIDE 102 MMOL/L (99-107); CREATININE 1.21 MG/DL (0.40-0.90); GLUCOSE 153 MG/DL (70-104); POTASSIUM 3.7 MMOL/L (3.5-5.1); SODIUM 139 MMOL/L (135-145); TOTAL CARBON DIOXIDE 28.2 MMOL/L (24-32); TOTAL PROTEIN 6.5 G/DL (6.4-8.2); eGFR 48 ML/MIN
[2019-08-25 05:42] LABS: MAGNESIUM 1.9 MG/DL (1.5-2.4)
--- NOTE | 2019-08-25 05:48 | NUR ---
MD notified for Troponins 3HR 0.13, and 6HR 0.13 No new orders at this time.
--- NOTE | 2019-08-25 06:24 | NUR ---
Problems reprioritized. Patient report given, questions answered & plan of care reviewed with LOUISE Mendoza.
[2019-08-25] MEDS ORDERED: lisinopril 10 MG tablet PO SCH (08:00)
[2019-08-25] MEDS: K and/or MAG REPLACEMENT MC SCH ×2 (08:00→18:37)
[2019-08-25] MEDS: carvedilol 6.25mg tablet PO SCH ×2 (09:07→20:55)
[2019-08-25] MEDS: acetaminophen 325mg tablet PO PRN ×2 (09:07→23:04)
[2019-08-25] MEDS: heparin, porcine 5000 units/ml vial SQ SCH ×2 (09:08→20:55)
[2019-08-25] MEDS: furosemide 10 MG/1 ML 10ml inj IV SCH (09:08)
[2019-08-25] MEDS ORDERED: ASPI-611 PO (13:29)
[2019-08-25] MEDS: nicotine 21mg patch - 24 hr TD SCH (17:28)
--- NOTE | 2019-08-25 18:17 | NUR ---
Problems reprioritized. Patient report given, questions answered & plan of care reviewed with LOUISE Urrutia. Patient stable at transfer of care.
--- NOTE | 2019-08-25 18:21 | NUR ---
Patient in room PCU 3026. I have received report from LOUISE Mendoza and had the opportunity to ask questions and assume patient care.
[2019-08-25] MEDS ORDERED: insulin glargine (Lantus) pen - multi-dose SQ SCH (21:00)
[2019-08-26 00:55] VITALS: BP_SYST 170; BP_SYST 171; BP_DIAS 104; BP_DIAS 94
[2019-08-26] MEDS ORDERED: carvedilol 6.25mg tablet PO ONE (01:05)
[2019-08-26 02:00] VITALS: BP 164/110
[2019-08-26 05:51] LABS: BASOPHILS # (AUTO) 0.1 X10'3 (0-0.2); BASOPHILS % (AUTO) 0.5 % (0-1); EOSINOPHILS # (AUTO) 1.8 X10'3 (0-0.9); EOSINOPHILS % (AUTO) 17.2 % (0-6); HEMATOCRIT 38.7 % (35.0-45.0); HEMOGLOBIN 12.3 g/dl (12.0-16.0); LYMPHOCYTES % (AUTO) 19.1 % (21-51); MEAN CORPUSCULAR HEMOGLOBIN 25.1 PG (27.0-31.0); MEAN CORPUSCULAR HGB CONC 31.9 g/dL (33.0-36.5); MEAN CORPUSCULAR VOLUME 78.8 FL (78-98); MEAN PLATELET VOLUME 8.9 FL (7.4-10.4); MONOCYTES # (AUTO) 0.6 X10'3 (0-0.9); NEUTROPHILS # (AUTO) 6.1 X10'3 (1.8-7.7); NEUTROPHILS % (AUTO) 57.2 % (42-75); PLATELET COUNT 241 X10'3 (140-440); RED BLOOD COUNT 4.91 X10'6 (4.20-5.60); RED CELL DISTRIBUTION WIDTH 22.1 % (11.5-14.5); WHITE BLOOD COUNT 10.7 X10'3 (4.5-11.0)
[2019-08-26 06:03] LABS: ALANINE AMINOTRANSFERASE 10 U/L (12-78); ALBUMIN 2.5 G/DL (3.4-5.0); ALBUMIN/GLOBULIN RATIO 0.7 (1.1-1.5); ALKALINE PHOSPHATASE 88 IU/L (46-116); ANION GAP 4 (8-16); ASPARTATE AMINO TRANSFERASE 17 U/L (10-37); BILIRUBIN,TOTAL 0.7 MG/DL (0.1-1.0); BLOOD UREA NITROGEN 31 MG/DL (7-18); CALCIUM 8.4 MG/DL (8.5-10.1); CHLORIDE 100 MMOL/L (99-107); CREATININE 1.41 MG/DL (0.40-0.90); GLUCOSE 150 MG/DL (70-104); POTASSIUM 4.1 MMOL/L (3.5-5.1); SODIUM 135 MMOL/L (135-145); TOTAL CARBON DIOXIDE 31.3 MMOL/L (24-32); eGFR 40 ML/MIN
--- NOTE | 2019-08-26 06:25 | NUR ---
Problems reprioritized. Patient report given, questions answered & plan of care reviewed with LOUISE Mendoza.
--- NOTE | 2019-08-26 06:28 | NUR ---
Patient in room PCU 3026. I have received report from LOUISE Urrutia and had the opportunity to ask questions and assume patient care. Patient asleep in bed and in no acute distress.
[2019-08-26 07:00] VITALS: BP 145/98
[2019-08-26] MEDS ORDERED: CefTRIAXone 2gm/D5W 50ml 50 ML IV SCH (08:00)
[2019-08-26] MEDS ORDERED: lisinopril 10 MG tablet PO SCH (08:00)
[2019-08-26] MEDS ORDERED: aspirin 81mg tablet.DR PO SCH (08:00)
[2019-08-26] MEDS: K and/or MAG REPLACEMENT MC SCH (08:00)
[2019-08-26] MEDS: carvedilol 6.25mg tablet PO SCH (09:20)
[2019-08-26 09:21] VITALS: BP_SYST 173
[2019-08-26] MEDS: heparin, porcine 5000 units/ml vial SQ SCH (09:21)
[2019-08-26] MEDS: furosemide 10 MG/1 ML 10ml inj IV SCH (09:22)
[2019-08-26] MEDS: nicotine 21mg patch - 24 hr TD SCH (09:23)
[2019-08-26] MEDS ORDERED: amLODIPine 5mg tablet PO ONE (09:25)
[2019-08-26] MEDS ORDERED: NOR5T PO (10:55)
[2019-08-26] MEDS ORDERED: CARV6.253 PO (10:55)
[2019-08-26] MEDS ORDERED: FURO20TA4 PO (10:55)
[2019-08-26] MEDS ORDERED: LISI10TA4 PO (10:55)
--- NOTE | 2019-08-26 14:50 | NUR ---
Patient stable for discharge per MD orders. All discharge instructions reviewed and all questions answered appropriately. Belongings collected and sent with patient. New prescriptions called [facility] on [address]. PIV discontinued and cannula intact. electronic device monitor discontinued. Patient wheeled down to lobby and left via private vehicle.
[2019-08-27] MEDS ORDERED: amLODIPine 5mg tablet PO SCH (08:00)
== END 2019-08-26 15:27 | disposition home or self-care (01) | DRG 194 ==
LOC: ER 21:23 → ED HOLD 23:24 → UNDOADMIN 08-25 00:06 → ED HOLD 08-25 00:25 → PCU 3S 08-25 00:25
PROVIDERS: ADMIT Internal Medicine; ATTEND Internal Medicine
PROC: 5A09357 Assistance with Respiratory Ventilation, Less than 24 Consecutive Hours, Continuous Positive Airway Pressure (ICD-10-PCS; principal; 2019-08-24)
DX: I11.0 Hypertensive heart disease with heart failure (principal); D72.829 Elevated white blood cell count, unspecified; E11.9 Type 2 diabetes mellitus without complications; F15.90 Other stimulant use, unspecified, uncomplicated; F12.90 Cannabis use, unspecified, uncomplicated; F17.210 Nicotine dependence, cigarettes, uncomplicated; R06.03 Acute respiratory distress; R51 Headache; I50.23 Acute on chronic systolic (congestive) heart failure; J44.9 Chronic obstructive pulmonary disease, unspecified; Z82.41 Family history of sudden cardiac death; Z82.49 Family history of ischemic heart disease and other diseases of the circulatory system; Z82.5 Family history of asthma and other chronic lower respiratory diseases; Z86.711 Personal history of pulmonary embolism; Z90.710 Acquired absence of both cervix and uterus; Z91.19 Patient's noncompliance with other medical treatment and regimen; Z88.1 Allergy status to other antibiotic agents; Z79.899 Other long term (current) drug therapy; Z71.6 Tobacco abuse counseling
CPT/HCPCS: 36415; 36600; 71045; 80053; 80305; 82803; 82948; 83036; 83735; 83880; 84145; 84484; 85018; 85025; 85610; 85730; 86140; 87081; 93005; 94660; 94760; 96365; 96375; 99291; G0378; J0696; J1644; J1815; J1940; J3490

== ENCOUNTER 2020-06-30 07:44 | Inpatient (IN) | payer MEDICAID ==
[~2020-06-30] VITALS: Ht 157.5 cm; Wt 65.9 kg
[~2020-06-30 07:44] MED LIST changes: -ASPI-1071 PO; +ASPI-611 PO; -ATOR10TA PO; +FURO20TA4 PO; -FURO40TA4 PO; -GLYB2.5T4 PO; -METF-950 PO; -NICO-687 TD; +NOR5T PO
[2020-06-30] MEDS ORDERED: furosemide 40mg/4ml inj IV ONE (07:55)
[2020-06-30] MEDS ORDERED: ALBUTEROL INHALER 1 PUFF/90 MCG INHALER IH PRN (07:55)
[2020-06-30] MEDS ORDERED: ondansetron/PF 4mg/2ml inj IV ONE (08:30)
[2020-06-30 08:37] LABS: BASOPHILS # (AUTO) 0.1 X10'3 (0-0.2); BASOPHILS % (AUTO) 0.9 % (0-1); EOSINOPHILS # (AUTO) 1.1 X10'3 (0-0.9); EOSINOPHILS % (AUTO) 8.3 % (0-6); LYMPHOCYTES # (AUTO) 1.6 X10'3 (1.1-4.8); LYMPHOCYTES % (AUTO) 12.7 % (21-51); MEAN PLATELET VOLUME 8.2 FL (7.4-10.4); MONOCYTES # (AUTO) 0.5 X10'3 (0-0.9); MONOCYTES % (AUTO) 3.8 % (2-12); NEUTROPHILS # (AUTO) 9.5 X10'3 (1.8-7.7); NEUTROPHILS % (AUTO) 74.3 % (42-75); PLATELET COUNT 329 X10'3 (140-440); WHITE BLOOD COUNT 12.9 X10'3 (4.5-11.0)
[2020-06-30 08:57] LABS: ALANINE AMINOTRANSFERASE 41 U/L (12-78); ALBUMIN 2.8 G/DL (3.4-5.0); ALBUMIN/GLOBULIN RATIO 0.6 (1.1-1.5); ALKALINE PHOSPHATASE 117 IU/L (46-116); ANION GAP 10 (8-16); ASPARTATE AMINO TRANSFERASE 21 U/L (10-37); BILIRUBIN,TOTAL 0.8 MG/DL (0.1-1.0); BLOOD UREA NITROGEN 25 MG/DL (7-18); BUN/CREATININE RATIO 19.8 (6.6-38.0); CALCIUM 8.9 MG/DL (8.5-10.1); CHLORIDE 103 MMOL/L (99-107); CREATININE 1.26 MG/DL (0.40-0.90); GLUCOSE 218 MG/DL (70-104); POTASSIUM 3.7 MMOL/L (3.5-5.1); SODIUM 137 MMOL/L (135-145); TOTAL CARBON DIOXIDE 24.1 MMOL/L (24-32); TOTAL PROTEIN 7.4 G/DL (6.4-8.2); eGFR 46 ML/MIN
[2020-06-30 09:05] LABS: HEMATOCRIT 34.7 % (35.0-45.0); HEMOGLOBIN 10.6 g/dl (12.0-16.0); MEAN CORPUSCULAR VOLUME 74.8 FL (78-98); RED BLOOD COUNT 4.63 X10'6 (4.20-5.60)
[2020-06-30 09:06] LABS: MEAN CORPUSCULAR HGB CONC 30.7 g/dL (33.0-36.5); RED CELL DISTRIBUTION WIDTH 19.8 % (11.5-14.5)
[2020-06-30 09:12] LABS: TOTAL CELLS COUNTED 100
[2020-06-30 09:13] LABS: ANISOCYTOSIS 3+; HYPOCHROMASIA 1+; MICROCYTOSIS 1+; PLATELET ESTIMATE NORMAL; POLYCHROMASIA 2+
[2020-06-30 09:14] LABS: ELLIPTOCYTES 1+; SCHISTOCYTES FEW; TARGET CELLS FEW; TEAR DROP CELLS FEW
[2020-06-30] MEDS ORDERED: carvedilol 6.25mg tablet PO SCH (09:30)
[2020-06-30] MEDS ORDERED: amLODIPine 5mg tablet PO ONE (09:30)
[2020-06-30] MEDS ORDERED: carvedilol 6.25mg tablet PO ONE (09:30)
[2020-06-30] MEDS ORDERED: nitroGLYCERIN 1gm ointment UD TP ONE (09:30)
[2020-06-30] MEDS ORDERED: HYDROcodone/acetaminophen 5mg/325mg tablet PO PRN (09:50)
[2020-06-30] MEDS ORDERED: lisinopril 20mg tablet PO ONE (09:50)
[2020-06-30] MEDS ORDERED: acetaminophen 325mg tablet PO PRN ×2 (09:50)
[2020-06-30] MEDS ORDERED: ipratropium/albuterol 3ml nebule NEB PRN (09:50)
[2020-06-30] MEDS ORDERED: ondansetron/PF 4mg/2ml inj IV PRN (09:50)
[2020-06-30] MEDS ORDERED: HYDROcodone/acetaminophen 10/325mg tab PO PRN (09:50)
[2020-06-30] MEDS ORDERED: magnesium 2GM in 50ml NS 50 ML IV PRN (09:50)
[2020-06-30] MEDS ORDERED: potassium Cl 40MEQ/1/2NS 520ml 520 ML IV PRN ×2 (09:50)
[2020-06-30] MEDS ORDERED: albuterol 2.5 MG/3 ML nebule NEB PRN (09:50)
[2020-06-30] MEDS ORDERED: magnesium hydroxide 30ml (MOM) UD suspension PO PRN (09:50)
[2020-06-30] MEDS ORDERED: mag hydrox/Alum hydrox/simeth 30ml oral suspension PO PRN (09:50)
[2020-06-30] MEDS ORDERED: potassium Cl 20 mEq SR tablet PO PRN ×2 (09:50)
[2020-06-30] MEDS ORDERED: magnesium 4gm in 100ml NS 100 ML IV PRN (09:50)
[2020-06-30] MEDS ORDERED: glucagon, human recombinant 1mg kit SUBCUT PRN (10:45)
[2020-06-30] MEDS ORDERED: dextrose ORAL solution 15 GM/59 ML bottle PO PRN ×2 (10:45)
[2020-06-30] MEDS ORDERED: MESSAGE TO PHARMACY PO ONE (10:45)
[2020-06-30] MEDS ORDERED: insulin Lispro (HumaLOG) vial - multi-dose SQ SCH (10:45)
[2020-06-30] MEDS ORDERED: dextrose 50%-water 50ml dispensing syringe IV PRN ×2 (10:45)
[2020-06-30] MEDS: K and/or MAG REPLACEMENT MC SCH (19:21)
[2020-06-30 20:00] VITALS: BP 123/73
[2020-06-30] MEDS ORDERED: furosemide 10 MG/1 ML 10ml inj IV SCH (20:00)
[2020-06-30] MEDS ORDERED: enoxaparin 40mg/0.4ml syringe SQ SCH (20:00)
--- NOTE | 2020-06-30 20:00 | NUR ---
Patient in room PCU 3021. I have received report from LOUISE Butcher and had the opportunity to ask questions and assume patient care.
[2020-06-30] MEDS: carvedilol 6.25mg tablet PO SCH (20:45)
[2020-06-30] MEDS ORDERED: insulin glargine (Lantus) pen - multi-dose SQ SCH (21:00)
[2020-06-30 22:00] VITALS: BP 128/76
[2020-07-01 02:00] VITALS: BP 129/80
[2020-07-01 06:00] VITALS: BP 116/70
--- NOTE | 2020-07-01 06:19 | NUR ---
Problems reprioritized. Patient report given, questions answered & plan of care reviewed with LOUISE Chapa.
[2020-07-01 06:37] LABS: BASOPHILS # (AUTO) 0.1 X10'3 (0-0.2); BASOPHILS % (AUTO) 0.8 % (0-1); EOSINOPHILS # (AUTO) 1.4 X10'3 (0-0.9); EOSINOPHILS % (AUTO) 12.6 % (0-6); HEMATOCRIT 30.4 % (35.0-45.0); HEMOGLOBIN 9.3 g/dl (12.0-16.0); LYMPHOCYTES % (AUTO) 18.1 % (21-51); MEAN CORPUSCULAR HEMOGLOBIN 22.4 PG (27.0-31.0); MEAN CORPUSCULAR HGB CONC 30.7 g/dL (33.0-36.5); MEAN CORPUSCULAR VOLUME 73.1 FL (78-98); MEAN PLATELET VOLUME 8.3 FL (7.4-10.4); MONOCYTES # (AUTO) 0.7 X10'3 (0-0.9); MONOCYTES % (AUTO) 6.3 % (2-12); NEUTROPHILS % (AUTO) 62.2 % (42-75); PLATELET COUNT 292 X10'3 (140-440); RED BLOOD COUNT 4.16 X10'6 (4.20-5.60); RED CELL DISTRIBUTION WIDTH 20.3 % (11.5-14.5); WHITE BLOOD COUNT 11.2 X10'3 (4.5-11.0)
[2020-07-01 06:59] LABS: ALANINE AMINOTRANSFERASE 31 U/L (12-78); ALBUMIN 2.4 G/DL (3.4-5.0); ALBUMIN/GLOBULIN RATIO 0.6 (1.1-1.5); ALKALINE PHOSPHATASE 93 IU/L (46-116); ANION GAP 7 (8-16); ASPARTATE AMINO TRANSFERASE 15 U/L (10-37); BILIRUBIN,TOTAL 0.5 MG/DL (0.1-1.0); BLOOD UREA NITROGEN 36 MG/DL (7-18); BUN/CREATININE RATIO 22.4 (6.6-38.0); CALCIUM 8.7 MG/DL (8.5-10.1); CHLORIDE 102 MMOL/L (99-107); CHOLESTEROL 106 MG/DL (0-200); CREATININE 1.61 MG/DL (0.40-0.90); GLUCOSE 145 MG/DL (70-104); HDL CHOLESTEROL 35 MG/DL (35-60); LDL CHOLESTEROL 61 MG/DL (50-100); SODIUM 136 MMOL/L (135-145); TOTAL CARBON DIOXIDE 27.4 MMOL/L (24-32); TOTAL PROTEIN 6.5 G/DL (6.4-8.2); TRIGLYCERIDES 66 MG/DL (20-135); eGFR 34 ML/MIN
[2020-07-01] MEDS: carvedilol 6.25mg tablet PO SCH (07:44)
[2020-07-01] MEDS ORDERED: CefTRIAXone/D5W-Rocephin 1gm 50 ML IV SCH (08:00)
[2020-07-01] MEDS: K and/or MAG REPLACEMENT MC SCH (08:00)
[2020-07-01] MEDS ORDERED: furosemide 40mg/4ml inj IV SCH (08:00)
[2020-07-01] MEDS ORDERED: lisinopril 20mg tablet PO SCH (08:00)
[2020-07-01 09:53] LABS: ANISOCYTOSIS 3+; MICROCYTOSIS 1+; PLATELET ESTIMATE NORMAL
[2020-07-01 09:54] LABS: ELLIPTOCYTES FEW; HYPOCHROMASIA 2+; POLYCHROMASIA 1+; TEAR DROP CELLS FEW
[2020-07-01] MEDS ORDERED: FLU VACC QS2020-21(6MOS UP)/PF 60 MCG/0.5 ML SYRINGE IMVAC ONE (10:00)
[2020-07-01 11:00] VITALS: BP_SYST 61
[2020-07-01] MEDS ORDERED: AMLO10TA48 PO (14:12)
[2020-07-01] MEDS ORDERED: CARV-50 PO (14:13)
[2020-07-01] MEDS ORDERED: FURO-150 PO ×2 (14:15→15:12)
[2020-07-01] MEDS ORDERED: LISI-600 PO ×2 (14:16→15:12)
[2020-07-01 15:00] VITALS: BP 130/71
[2020-07-01] MEDS ORDERED: CARV6.253 PO (15:12)
--- NOTE | 2020-07-01 15:19 | NUR ---
DM/Malnutrition Consults: Pt hx T2DM A1C 7.5 admit DX CHF exacerbation EF 20-25% per EMR. Pt seen by RD for written/verbal DM ed w/ RD contact information provided. Pt reports no questions/concerns at this time. Pt has normal strength, appears well-nourished, PO 75-100% avg heart healthy/carb controlled meals, and does not meet minimum malnutrition criteria at this time. To provide full initial assessment on above date. Addendum: 07/01/20 at [address] Amended: Links added.
[2020-07-01] MEDS ORDERED: SITA25TA3 PO (15:21)
--- NOTE | 2020-07-01 17:02 | NUR ---
Patient signed discharge paper work. All education for follow up after discharge completed and verbally acknowledged by patient. Paper work provided with all next doses for home medications, patient aware. Patient has [facility] medical packet in discharge packet. Patient waiting on ride and doesn't know when she will be picked up. IV discontinued. All patients belongings in her possession. DM education and CHF education completed with verbal acknowledgement completed by patient to nurse.
[2020-07-01 18:00] VITALS: BP 139/77
--- NOTE | 2020-07-01 18:08 | NUR ---
Problems reprioritized. Patient report given, questions answered & plan of care reviewed with Suzie GIL. Patient discharged and waiting on a ride.
[2020-07-01] MEDS ORDERED: lactobacillus rhamnosus 10,000 MMU CELLS/CAPSULE PO SCH (20:00)
== END 2020-07-01 19:30 | disposition home or self-care (01) | DRG 133 ==
LOC: ER 07:44 → ED HOLD 09:48 → EDBEDREQ 18:19 → PCU 3S 18:50
PROVIDERS: ADMIT Family Medicine; ATTEND Family Medicine
DX: J96.00 Acute respiratory failure, unspecified whether with hypoxia or hypercapnia (principal); I13.0 Hypertensive heart and chronic kidney disease with heart failure and stage 1 through stage 4 chronic kidney disease, or unspecified chronic kidney disease; D64.9 Anemia, unspecified; E11.22 Type 2 diabetes mellitus with diabetic chronic kidney disease; F17.210 Nicotine dependence, cigarettes, uncomplicated; I50.23 Acute on chronic systolic (congestive) heart failure; I42.9 Cardiomyopathy, unspecified; I16.1 Hypertensive emergency; Z20.822 Contact with and (suspected) exposure to COVID-19; N18.30 Chronic kidney disease, stage 3 unspecified; Z79.899 Other long term (current) drug therapy; Z82.41 Family history of sudden cardiac death; Z82.49 Family history of ischemic heart disease and other diseases of the circulatory system; Z82.5 Family history of asthma and other chronic lower respiratory diseases; Z86.711 Personal history of pulmonary embolism; Z90.710 Acquired absence of both cervix and uterus; Z91.19 Patient's noncompliance with other medical treatment and regimen; Z79.51 Long term (current) use of inhaled steroids; Z88.8 Allergy status to other drugs, medicaments and biological substances; Z88.1 Allergy status to other antibiotic agents; Z79.82 Long term (current) use of aspirin; Z98.51 Tubal ligation status; Z87.01 Personal history of pneumonia (recurrent)
CPT/HCPCS: 36415; 71045; 80053; 80061; 82948; 83036; 83735; 83880; 85007; 85008; 85025; 87070; 87081; 87635; 93005; 93306; 93308; 94760; 96374; 96375; 97116; 97161; 97530; 99285; G0378; J0696; J1650; J1815; J1940; J2405; Q2039

== ENCOUNTER 2021-01-06 18:14 | Inpatient (IN) | payer MEDICAID, OTHER ==
[~2021-01-06] VITALS: Ht 170.2 cm; Wt 72.7 kg
[~2021-01-06 18:14] MED LIST changes: +FURO-150 PO; -FURO20TA4 PO; -LISI10TA4 PO; +LISI20TA28 PO; -NOR5T PO
[2021-01-06 19:12] LABS: BASOPHILS # (AUTO) 0.1 X10'3 (0-0.2); BASOPHILS % (AUTO) 0.8 % (0-1); EOSINOPHILS # (AUTO) 2.5 X10'3 (0-0.9); EOSINOPHILS % (AUTO) 22.1 % (0-6); HEMATOCRIT 46.7 % (35.0-45.0); HEMOGLOBIN 15.3 g/dl (12.0-16.0); LYMPHOCYTES # (AUTO) 2.3 X10'3 (1.1-4.8); LYMPHOCYTES % (AUTO) 19.8 % (21-51); MEAN CORPUSCULAR HEMOGLOBIN 28.3 PG (27.0-31.0); MEAN CORPUSCULAR HGB CONC 32.6 g/dL (33.0-36.5); MEAN CORPUSCULAR VOLUME 86.8 FL (78-98); MEAN PLATELET VOLUME 8.1 FL (7.4-10.4); MONOCYTES # (AUTO) 0.8 X10'3 (0-0.9); MONOCYTES % (AUTO) 6.9 % (2-12); NEUTROPHILS # (AUTO) 5.8 X10'3 (1.8-7.7); NEUTROPHILS % (AUTO) 50.4 % (42-75); PLATELET COUNT 222 X10'3 (140-440); RED BLOOD COUNT 5.38 X10'6 (4.20-5.60); RED CELL DISTRIBUTION WIDTH 18.4 % (11.5-14.5); WHITE BLOOD COUNT 11.5 X10'3 (4.5-11.0)
[2021-01-06 19:27] LABS: ANION GAP 9 (8-16); BILIRUBIN,TOTAL 0.4 MG/DL (0.1-1.0); BLOOD UREA NITROGEN 34 MG/DL (7-18); BUN/CREATININE RATIO 23.6 (6.6-38.0); CALCIUM 9.3 MG/DL (8.5-10.1); CHLORIDE 101 MMOL/L (99-107); CREATININE 1.44 MG/DL (0.40-0.90); GLUCOSE 102 MG/DL (70-104); POTASSIUM 4.8 MMOL/L (3.5-5.1); SODIUM 138 MMOL/L (135-145); TOTAL CARBON DIOXIDE 28.5 MMOL/L (24-32); TOTAL PROTEIN 7.6 G/DL (6.4-8.2); eGFR 39 ML/MIN
[2021-01-06 19:28] LABS: ALANINE AMINOTRANSFERASE 34 U/L (12-78); ALBUMIN 3.5 G/DL (3.4-5.0); ALBUMIN/GLOBULIN RATIO 0.9 (1.1-1.5); ALKALINE PHOSPHATASE 101 IU/L (46-116); ASPARTATE AMINO TRANSFERASE 24 U/L (10-37)
[2021-01-06] MEDS ORDERED: labetalol 20mg/4ml (5mg/ml) syringe IV ONE (19:40)
[2021-01-06] MEDS ORDERED: iohexol 350MG/ML 100ml bottle IV ONE (19:46)
[2021-01-07] VITALS (20 sets, daily range): BP systolic 118–164; BP diastolic 71–91
[2021-01-07] MEDS ORDERED: morphine 4 MG/ML inj SYRINge IV ONE (00:20)
[2021-01-07] MEDS ORDERED: morphine 2 MG/ML inj. syringe IV PRN ×2 (03:35)
[2021-01-07] MEDS ORDERED: acetaminophen 325mg tablet PO PRN ×2 (03:35)
[2021-01-07] MEDS ORDERED: magnesium 4gm in 100ml NS 100 ML IV PRN (03:35)
[2021-01-07] MEDS ORDERED: HYDROcodone/acetaminophen 10/325mg tab PO PRN ×2 (03:35→16:55)
[2021-01-07] MEDS ORDERED: heparin 10,000 units/1 ML INJ IV ONE (03:35)
[2021-01-07] MEDS ORDERED: heparin 25,000 UNIT/250ml bag 250 ML IV SCH (03:35)
[2021-01-07] MEDS ORDERED: potassium Cl 40MEQ/1/2NS 520ml 520 ML IV PRN ×2 (03:35)
[2021-01-07] MEDS ORDERED: magnesium 2GM in 50ml NS 50 ML IV PRN (03:35)
[2021-01-07] MEDS ORDERED: HYDROcodone/acetaminophen 5mg/325mg tablet PO PRN ×2 (03:35→16:55)
[2021-01-07] MEDS ORDERED: potassium Cl 20 mEq SR tablet PO PRN ×2 (03:35)
[2021-01-07] MEDS ORDERED: magnesium Cl slow-release 64mg tablet PO PRN (03:35)
[2021-01-07] MEDS ORDERED: ondansetron/PF 4mg/2ml inj IV PRN ×2 (03:35→16:55)
[2021-01-07] MEDS ORDERED: heparin 10,000 units/1 ML INJ IV PRN (03:35)
[2021-01-07] MEDS ORDERED: MESSAGE TO PHARMACY PO ONE (03:50)
[2021-01-07] MEDS ORDERED: glucagon, human recombinant 1mg kit SUBCUT PRN (03:50)
[2021-01-07] MEDS ORDERED: insulin Lispro (HumaLOG) vial - multi-dose SQ SCH (03:50)
[2021-01-07] MEDS ORDERED: dextrose 50%-water 50ml dispensing syringe IV PRN ×2 (03:50)
[2021-01-07] MEDS ORDERED: dextrose ORAL solution 15 GM/59 ML bottle PO PRN ×2 (03:50)
[2021-01-07] MEDS: normal saline 1000ml 1,000 ML IV SCH ×3 (04:32→23:35)
[2021-01-07] MEDS ORDERED: AMLO5TAB16 PO (04:51)
[2021-01-07] MEDS ORDERED: CARV25TA56 PO (04:51)
--- NOTE | 2021-01-07 05:30 | NUR ---
Patient in room PCU 3020. I have received report from ER nurse and had the opportunity to ask questions and assume patient care.
--- NOTE | 2021-01-07 06:05 | NUR ---
Problems reprioritized. Patient report given, questions answered & plan of care reviewed with Iva GIL.
--- NOTE | 2021-01-07 06:39 | NUR ---
Patient in room PCU 3020. I have received report from LOUISE Taylor and had the opportunity to ask questions and assume patient care.
--- NOTE | 2021-01-07 06:47 | NUR ---
Patient in room PCU 3020. I have received report from LOUISE Taylor and had the opportunity to ask questions and assume patient care.
[2021-01-07 07:00] LABS: BASOPHILS # (AUTO) 0.1 X10'3 (0-0.2); EOSINOPHILS # (AUTO) 2.4 X10'3 (0-0.9); EOSINOPHILS % (AUTO) 25.4 % (0-6); HEMATOCRIT 41.7 % (35.0-45.0); HEMOGLOBIN 13.9 g/dl (12.0-16.0); LYMPHOCYTES # (AUTO) 2.1 X10'3 (1.1-4.8); LYMPHOCYTES % (AUTO) 21.7 % (21-51); MEAN CORPUSCULAR HEMOGLOBIN 28.6 PG (27.0-31.0); MEAN CORPUSCULAR HGB CONC 33.3 g/dL (33.0-36.5); MEAN PLATELET VOLUME 8.2 FL (7.4-10.4); MONOCYTES # (AUTO) 0.6 X10'3 (0-0.9); MONOCYTES % (AUTO) 5.8 % (2-12); NEUTROPHILS # (AUTO) 4.5 X10'3 (1.8-7.7); NEUTROPHILS % (AUTO) 46.1 % (42-75); PLATELET COUNT 190 X10'3 (140-440); RED BLOOD COUNT 4.85 X10'6 (4.20-5.60); RED CELL DISTRIBUTION WIDTH 18.2 % (11.5-14.5); WHITE BLOOD COUNT 9.6 X10'3 (4.5-11.0)
[2021-01-07 07:45] LABS: ANISOCYTOSIS 2+; PLATELET ESTIMATE NORMAL; TOTAL CELLS COUNTED 100
[2021-01-07 07:46] LABS: LARGE PLATELETS FEW
[2021-01-07] MEDS: K and/or MAG REPLACEMENT MC SCH ×2 (08:00→20:00)
[2021-01-07 08:14] LABS: PARTIAL THROMBOPLASTIN TIME > 139 SECONDS (22-32)
--- NOTE | 2021-01-07 08:29 | NUR ---
Paged Dr Cordell Doss critical PAGER ID: [phone] MESSAGE: Patsy Sagastume [id number] Critical PTT >139 Will follow the protocol. Thanks Iva [phone]
[2021-01-07] MEDS ORDERED: amLODIPine 5mg tablet PO SCH (08:55)
[2021-01-07] MEDS ORDERED: aminophylline 250mg/10ml inj. IV PRN (09:25)
[2021-01-07] MEDS ORDERED: regadenoson 0.4mg/5ml syringe IV PRN (09:25)
[2021-01-07] MEDS: carVEDilol 12.5mg tablet PO SCH ×2 (10:56→20:48)
[2021-01-07] MEDS: furosemide 20MG tablet PO SCH (10:57)
[2021-01-07] MEDS: lisinopril 20mg tablet PO SCH (10:58)
--- NOTE | 2021-01-07 11:04 | NUR ---
Paged [phone] Operator Patsy Sagastume [phone] Pt back from Deanna, needs Echo. Thanks Iva Blanca [phone]
--- NOTE | 2021-01-07 11:52 | NUR ---
Paged Jocelyn Leslie, Patsy [phone] Dr Landa wanted me to let you know Deanna is positive. Thanks Iva [phone]
[2021-01-07] MEDS ORDERED: midazolam 1 mg/ML 2ml injection ONE (15:16)
[2021-01-07] MEDS ORDERED: heparin 1,000unit/ml 10ml vial 10 ML ONE (15:17)
[2021-01-07] MEDS ORDERED: LIDOcaine 1% (10mg/ml)w/preservative injection 20ml MDV ONE (15:17)
[2021-01-07] MEDS ORDERED: verapamil 2.5 mg/ml inj IV ONE (15:17)
[2021-01-07] MEDS ORDERED: nitroGLYCERIN-Tridil 50MG/D5W 250 ML IV ONE (15:17)
[2021-01-07] MEDS ORDERED: fentaNYL/PF 50MCG/1 ML 2ML syringe ONE (15:17)
[2021-01-07] MEDS ORDERED: iohexol 350MG/ML 100ml bottle IV ONE (15:18)
--- NOTE | 2021-01-07 16:20 | NUR ---
pt arrived from lab tester at 1620, AO X 4, ambulated with sba to bed, went through r radial, first set of vitals taken, pulses assessed, no hematoma noted.
[2021-01-07] MEDS ORDERED: proCHLORperazine 10 MG/2 ml inj IV PRN (16:55)
[2021-01-07] MEDS ORDERED: OXAZEpam 15mg capsule PO PRN (16:55)
--- NOTE | 2021-01-07 18:23 | NUR ---
[place] Medication Administration: For this medication-pass time frame, all medication were reviewed, dispensed, administered and documented per hospital policy by LOUISE Thompson.
--- NOTE | 2021-01-07 18:23 | NUR ---
Suzanna documentation: I have reviewed and agree with all interventions, assessments performed and documented by LOUISE Thompson.
--- NOTE | 2021-01-07 18:25 | NUR ---
Patient in room PCU 3020. I have received report from Iva GIL & Donna RN at bedside and had the opportunity to ask questions and assume patient care.
--- NOTE | 2021-01-07 18:38 | NUR ---
Problems reprioritized. Patient report given, questions answered & plan of care reviewed with LOUISE Almonte. Pt sitting up in bed eating dinner, guard at bedside. All pt needs met at this time.
[2021-01-07] MEDS ORDERED: ACETYLCYSTEINE 200 MG/1 ML 4 ML ORAL SOLUTION PO SCH (20:00)
[2021-01-07] MEDS: heparin, porcine 5000 units/ml vial SQ SCH (20:47)
[2021-01-07] MEDS ORDERED: insulin glargine (Lantus) pen - multi-dose SQ SCH (21:00)
[2021-01-07] MEDS ORDERED: temazepam 15mg capsule PO PRN (21:00)
[2021-01-08] VITALS: BP 135/76
[2021-01-08 02:00] VITALS: BP 157/77
[2021-01-08 04:00] VITALS: BP 164/77
[2021-01-08 06:00] VITALS: BP 159/77
[2021-01-08 06:00] LABS: BASOPHILS # (AUTO) 0.1 X10'3 (0-0.2); EOSINOPHILS # (AUTO) 2.8 X10'3 (0-0.9); EOSINOPHILS % (AUTO) 27.7 % (0-6); HEMATOCRIT 41.1 % (35.0-45.0); HEMOGLOBIN 13.4 g/dl (12.0-16.0); LYMPHOCYTES # (AUTO) 1.9 X10'3 (1.1-4.8); LYMPHOCYTES % (AUTO) 19.3 % (21-51); MEAN CORPUSCULAR HEMOGLOBIN 28.7 PG (27.0-31.0); MEAN CORPUSCULAR HGB CONC 32.7 g/dL (33.0-36.5); MEAN CORPUSCULAR VOLUME 87.7 FL (78-98); MEAN PLATELET VOLUME 8.5 FL (7.4-10.4); MONOCYTES # (AUTO) 0.7 X10'3 (0-0.9); MONOCYTES % (AUTO) 7.3 % (2-12); NEUTROPHILS # (AUTO) 4.5 X10'3 (1.8-7.7); NEUTROPHILS % (AUTO) 44.7 % (42-75); PLATELET COUNT 201 X10'3 (140-440); RED BLOOD COUNT 4.68 X10'6 (4.20-5.60); RED CELL DISTRIBUTION WIDTH 18.1 % (11.5-14.5); WHITE BLOOD COUNT 10.1 X10'3 (4.5-11.0)
--- NOTE | 2021-01-08 06:04 | NUR ---
Problems reprioritized. Patient report given, questions answered & plan of care reviewed with Iva GIL & Donna RN at bedside.
--- NOTE | 2021-01-08 06:08 | NUR ---
Patient in room PCU 3020. I have received report from LOUISE Almonte and had the opportunity to ask questions and assume patient care.
--- NOTE | 2021-01-08 06:09 | NUR ---
Patient in room PCU 3020. I have received report from LOUISE Almonte and had the opportunity to ask questions and assume patient care.
[2021-01-08 06:12] LABS: ALANINE AMINOTRANSFERASE 28 U/L (12-78); ALBUMIN 3.1 G/DL (3.4-5.0); ALBUMIN/GLOBULIN RATIO 0.9 (1.1-1.5); ALKALINE PHOSPHATASE 92 IU/L (46-116); ANION GAP 6 (8-16); ASPARTATE AMINO TRANSFERASE 20 U/L (10-37); BILIRUBIN,TOTAL 0.4 MG/DL (0.1-1.0); BLOOD UREA NITROGEN 33 MG/DL (7-18); BUN/CREATININE RATIO 23.4 (6.6-38.0); CALCIUM 8.8 MG/DL (8.5-10.1); CHLORIDE 104 MMOL/L (99-107); CHOL/HDL RATIO 3.3 (0.00-4.99); CHOLESTEROL 176 MG/DL (0-200); CREATININE 1.41 MG/DL (0.40-0.90); GLUCOSE 87 MG/DL (70-104); HDL CHOLESTEROL 54 MG/DL (35-60); LDL CHOLESTEROL 107 MG/DL (50-100); MAGNESIUM 2.3 MG/DL (1.5-2.4); POTASSIUM 4.3 MMOL/L (3.5-5.1); SODIUM 136 MMOL/L (135-145); TOTAL CARBON DIOXIDE 25.9 MMOL/L (24-32); TOTAL PROTEIN 6.6 G/DL (6.4-8.2); TRIGLYCERIDES 93 MG/DL (20-135); eGFR 40 ML/MIN
[2021-01-08] MEDS: K and/or MAG REPLACEMENT MC SCH (08:00)
[2021-01-08 08:49] VITALS: BP_SYST 101
[2021-01-08] MEDS: lisinopril 20mg tablet PO SCH (08:49)
[2021-01-08] MEDS: carVEDilol 12.5mg tablet PO SCH (08:49)
[2021-01-08] MEDS: furosemide 20MG tablet PO SCH (08:49)
[2021-01-08] MEDS: heparin, porcine 5000 units/ml vial SQ SCH (08:50)
[2021-01-08] MEDS ORDERED: METF-950 PO (08:54)
[2021-01-08] MEDS ORDERED: HYDR-4069 PO (08:54)
[2021-01-08] MEDS ORDERED: atorvastatin 20mg tablet PO SCH (09:35)
[2021-01-08] MEDS ORDERED: ATOR40TA PO (09:37)
--- NOTE | 2021-01-08 13:00 | NUR ---
[place] Medication Administration: For this medication-pass time frame, all medication were reviewed, dispensed, administered and documented per hospital policy by LOUISE Thompson.
--- NOTE | 2021-01-08 13:00 | NUR ---
[place] documentation: I have reviewed and agree with all interventions, assessments performed and documented by LOUISE Thompson.
--- NOTE | 2021-01-08 13:05 | NUR ---
pt is stable for discharge per md orders. all discharge instruction and questions reviewed and answered. Follow up appt made by retirement. PIV dc with cannula intact. tele monitor discontinued. belongings collected and sent with the pt. wheel to [facility]. transported to retirement by security risk analyst.
== END 2021-01-08 13:05 | DRG 281 ==
LOC: EEVIPCON 18:15 → ER 18:15 → ED HOLD 01-07 03:35 → UNDOADMIN 01-07 03:35 → ED HOLD 01-07 03:40 → PCU 3S 01-07 05:30 → ED HOLD 01-07 05:30
PROVIDERS: ADMIT Internal Medicine; ATTEND Family Medicine
PROC: B32T1ZZ Computerized Tomography (CT Scan) of Left Pulmonary Artery using Low Osmolar Contrast (ICD-10-PCS; 2021-01-06)
PROC: B3201ZZ Computerized Tomography (CT Scan) of Thoracic Aorta using Low Osmolar Contrast (ICD-10-PCS; 2021-01-06)
PROC: B32S1ZZ Computerized Tomography (CT Scan) of Right Pulmonary Artery using Low Osmolar Contrast (ICD-10-PCS; 2021-01-06)
PROC: B4201ZZ Computerized Tomography (CT Scan) of Abdominal Aorta using Low Osmolar Contrast (ICD-10-PCS; 2021-01-06)
PROC: B4241ZZ Computerized Tomography (CT Scan) of Superior Mesenteric Artery using Low Osmolar Contrast (ICD-10-PCS; 2021-01-06)
PROC: B4281ZZ Computerized Tomography (CT Scan) of Bilateral Renal Arteries using Low Osmolar Contrast (ICD-10-PCS; 2021-01-06)
PROC: B4211ZZ Computerized Tomography (CT Scan) of Celiac Artery using Low Osmolar Contrast (ICD-10-PCS; 2021-01-06)
PROC: 4A02XM4 Measurement of Cardiac Total Activity, External Approach (ICD-10-PCS; principal; 2021-01-07)
PROC: 3E073KZ Introduction of Other Diagnostic Substance into Coronary Artery, Percutaneous Approach (ICD-10-PCS; 2021-01-07)
PROC: 4A023N7 Measurement of Cardiac Sampling and Pressure, Left Heart, Percutaneous Approach (ICD-10-PCS; 2021-01-07)
PROC: B2111ZZ Fluoroscopy of Multiple Coronary Arteries using Low Osmolar Contrast (ICD-10-PCS; 2021-01-07)
PROC: B2151ZZ Fluoroscopy of Left Heart using Low Osmolar Contrast (ICD-10-PCS; 2021-01-07)
DX: I21.4 Non-ST elevation (NSTEMI) myocardial infarction (principal); I13.0 Hypertensive heart and chronic kidney disease with heart failure and stage 1 through stage 4 chronic kidney disease, or unspecified chronic kidney disease; I16.1 Hypertensive emergency; I42.9 Cardiomyopathy, unspecified; I50.22 Chronic systolic (congestive) heart failure; E11.22 Type 2 diabetes mellitus with diabetic chronic kidney disease; F17.210 Nicotine dependence, cigarettes, uncomplicated; F12.90 Cannabis use, unspecified, uncomplicated; E78.5 Hyperlipidemia, unspecified; I25.10 Atherosclerotic heart disease of native coronary artery without angina pectoris; N18.30 Chronic kidney disease, stage 3 unspecified; Z82.41 Family history of sudden cardiac death; Z82.49 Family history of ischemic heart disease and other diseases of the circulatory system; Z82.5 Family history of asthma and other chronic lower respiratory diseases; Z86.711 Personal history of pulmonary embolism; Z90.710 Acquired absence of both cervix and uterus; Z98.51 Tubal ligation status; Z79.84 Long term (current) use of oral hypoglycemic drugs; Z88.8 Allergy status to other drugs, medicaments and biological substances; Z79.899 Other long term (current) drug therapy
CPT/HCPCS: 36415; 71045; 71275; 74174; 78452; 80053; 80061; 82948; 83735; 83880; 84484; 85007; 85025; 85610; 85730; 87081; 93005; 93017; 93306; 93458; 99152; 99285; A5120; A9500; C1769; C1894; G0378; J1644; J1815; J2001; J2250; J2270; J3010; J3490; J7030; Q9967

== ENCOUNTER 2021-01-10 12:31 | Emergency (ER) | payer OTHER ==
[~2021-01-10] VITALS: Ht 157.5 cm; Wt 68.6 kg
[~2021-01-10 12:31] MED LIST changes: +AMLO5TAB16 PO; -ASPI-611 PO; +ATOR40TA PO; +CARV25TA56 PO; -CARV6.253 PO; +HYDR-4069 PO; +METF-950 PO
[2021-01-10] MEDS ORDERED: aspirin 81mg tab.chew PO ONE (13:20)
[2021-01-10 13:40] LABS: BASOPHILS # (AUTO) 0.1 X10'3 (0-0.2); BASOPHILS % (AUTO) 0.7 % (0-1); EOSINOPHILS # (AUTO) 2.7 X10'3 (0-0.9); EOSINOPHILS % (AUTO) 23.3 % (0-6); HEMATOCRIT 43.1 % (35.0-45.0); HEMOGLOBIN 14.2 g/dl (12.0-16.0); LYMPHOCYTES # (AUTO) 1.8 X10'3 (1.1-4.8); LYMPHOCYTES % (AUTO) 15.2 % (21-51); MEAN CORPUSCULAR VOLUME 87.9 FL (78-98); MEAN PLATELET VOLUME 8.1 FL (7.4-10.4); MONOCYTES # (AUTO) 0.6 X10'3 (0-0.9); MONOCYTES % (AUTO) 5.4 % (2-12); NEUTROPHILS # (AUTO) 6.5 X10'3 (1.8-7.7); NEUTROPHILS % (AUTO) 55.4 % (42-75); PLATELET COUNT 211 X10'3 (140-440); RED CELL DISTRIBUTION WIDTH 16.8 % (11.5-14.5); WHITE BLOOD COUNT 11.7 X10'3 (4.5-11.0)
[2021-01-10 13:53] LABS: PARTIAL THROMBOPLASTIN TIME 33 SECONDS (22-32)
[2021-01-10 13:55] LABS: D-DIMER < 0.19 MG/L FEU (0-0.50)
[2021-01-10 14:07] LABS: ALANINE AMINOTRANSFERASE 32 U/L (12-78); ALBUMIN 3.5 G/DL (3.4-5.0); ALBUMIN/GLOBULIN RATIO 0.9 (1.1-1.5); ALKALINE PHOSPHATASE 114 IU/L (46-116); ANION GAP 7 (8-16); ASPARTATE AMINO TRANSFERASE 23 U/L (10-37); BILIRUBIN,TOTAL 0.4 MG/DL (0.1-1.0); BLOOD UREA NITROGEN 41 MG/DL (7-18); CALCIUM 9.5 MG/DL (8.5-10.1); CHLORIDE 103 MMOL/L (99-107); CREATININE 1.52 MG/DL (0.40-0.90); GLUCOSE 116 MG/DL (70-104); SODIUM 138 MMOL/L (135-145); TOTAL CARBON DIOXIDE 27.8 MMOL/L (24-32); TOTAL PROTEIN 7.4 G/DL (6.4-8.2); eGFR 37 ML/MIN
[2021-01-10 14:08] LABS: LIPASE 108 U/L (73-393)
[2021-01-10 15:09] VITALS: BP 140/84
== END 2021-01-10 15:10 | disposition home or self-care (01) ==
LOC: ER 12:31
DX: R07.89 Other chest pain (principal); R10.9 Unspecified abdominal pain; I10 Essential (primary) hypertension; F12.90 Cannabis use, unspecified, uncomplicated; Z87.01 Personal history of pneumonia (recurrent); Z86.711 Personal history of pulmonary embolism; Z88.1 Allergy status to other antibiotic agents; Z88.8 Allergy status to other drugs, medicaments and biological substances; Z79.82 Long term (current) use of aspirin; Z79.899 Other long term (current) drug therapy
CPT/HCPCS: 71045; 80053; 83690; 83880; 84484; 85025; 85379; 85610; 85730; 93005; 99285

== ENCOUNTER 2021-09-16 05:24 | Inpatient (IN) | payer MEDICAID, OTHER ==
[~2021-09-16] VITALS: Ht 162.6 cm; Wt 65.9 kg
[~2021-09-16 05:24] MED LIST changes: -ATOR40TA PO; -HYDR-4069 PO; -METF-950 PO
[2021-09-16 06:03] LABS: BASOPHILS # (AUTO) 0.1 X10'3 (0-0.2); EOSINOPHILS # (AUTO) 1.1 X10'3 (0-0.9); EOSINOPHILS % (AUTO) 8.5 % (0-6); HEMATOCRIT 39.7 % (35.0-45.0); HEMOGLOBIN 12.9 g/dl (12.0-16.0); LYMPHOCYTES # (AUTO) 1.8 X10'3 (1.1-4.8); LYMPHOCYTES % (AUTO) 14.8 % (21-51); MEAN CORPUSCULAR HEMOGLOBIN 29.3 PG (27.0-31.0); MEAN CORPUSCULAR HGB CONC 32.4 g/dL (33.0-36.5); MEAN CORPUSCULAR VOLUME 90.4 FL (78-98); MEAN PLATELET VOLUME 8.3 FL (7.4-10.4); MONOCYTES # (AUTO) 0.6 X10'3 (0-0.9); MONOCYTES % (AUTO) 4.7 % (2-12); NEUTROPHILS # (AUTO) 8.8 X10'3 (1.8-7.7); PLATELET COUNT 299 X10'3 (140-440); RED BLOOD COUNT 4.39 X10'6 (4.20-5.60); RED CELL DISTRIBUTION WIDTH 17.8 % (11.5-14.5); WHITE BLOOD COUNT 12.5 X10'3 (4.5-11.0)
[2021-09-16 06:16] LABS: ALANINE AMINOTRANSFERASE 90 U/L (12-78); ALBUMIN 2.9 G/DL (3.4-5.0); ALBUMIN/GLOBULIN RATIO 0.8 (1.1-1.5); ALKALINE PHOSPHATASE 110 IU/L (46-116); ANION GAP 11 (8-16); ASPARTATE AMINO TRANSFERASE 44 U/L (10-37); BILIRUBIN,TOTAL 1.4 MG/DL (0.1-1.0); BLOOD UREA NITROGEN 31 MG/DL (7-18); BUN/CREATININE RATIO 23.1 (6.6-38.0); CALCIUM 8.4 MG/DL (8.5-10.1); CHLORIDE 105 MMOL/L (99-107); CREATININE 1.34 MG/DL (0.40-0.90); GLUCOSE 142 MG/DL (70-104); POTASSIUM 3.9 MMOL/L (3.5-5.1); SODIUM 140 MMOL/L (135-145); TOTAL CARBON DIOXIDE 24.1 MMOL/L (24-32); TOTAL PROTEIN 6.5 G/DL (6.4-8.2); eGFR 42 ML/MIN
[2021-09-16] MEDS ORDERED: labetalol 20mg/4ml (5mg/ml) syringe IV ONE (06:50)
[2021-09-16] MEDS ORDERED: furosemide 10 MG/1 ML 10ml inj IV ONE (07:00)
[2021-09-16] MEDS ORDERED: acetaminophen 325mg tablet PO PRN ×2 (07:20)
[2021-09-16] MEDS ORDERED: mag hydrox/Alum hydrox/simeth 30ml oral suspension PO PRN (07:20)
[2021-09-16] MEDS ORDERED: POTASSIUM BICARB 20meq eff tab 20 MEQ TABLET.EFF PO PRN ×2 (07:20)
[2021-09-16] MEDS ORDERED: HYDROcodone/acetaminophen 5mg/325mg tablet PO PRN (07:20)
[2021-09-16] MEDS ORDERED: magnesium Cl slow-release 64mg tablet PO PRN (07:20)
[2021-09-16] MEDS ORDERED: morphine 2 MG/ML inj. syringe IV PRN (07:20)
[2021-09-16] MEDS ORDERED: potassium CL 10mEq/100ml bag 100 ML IV PRN (07:20)
[2021-09-16] MEDS ORDERED: magnesium 2GM in 50ml NS 50 ML IV PRN (07:20)
[2021-09-16] MEDS ORDERED: ondansetron/PF 4mg/2ml inj IV PRN (07:20)
[2021-09-16] MEDS ORDERED: magnesium 4gm in 100ml NS 100 ML IV PRN (07:20)
[2021-09-16] MEDS: amLODIPine 5mg tablet PO SCH ×2 (07:43→08:00)
[2021-09-16] MEDS: K and/or MAG REPLACEMENT MC SCH ×2 (08:00→18:37)
[2021-09-16] MEDS: furosemide 20 MG/2 ML vial IV SCH ×2 (08:51→19:45)
[2021-09-16] MEDS: carVEDilol 12.5mg tablet PO SCH ×2 (08:51→19:47)
[2021-09-16] MEDS: heparin, porcine 5000 units/ml vial SQ SCH ×2 (08:51→19:45)
[2021-09-16] MEDS: lisinopril 20mg tablet PO SCH (08:51)
[2021-09-16 15:00] VITALS: BP 121/66
--- NOTE | 2021-09-16 15:41 | NUR ---
Student documentation: I have reviewed and agree with all interventions, assessments performed and documented by Betty, nursing home administrator.
--- NOTE | 2021-09-16 15:42 | NUR ---
Student Medication Administration: For this medication-pass time frame, all medication were reviewed, dispensed, administered and documented per hospital policy by sherry Hernández.
[2021-09-16] MEDS ORDERED: NO HOME MEDS (17:38)
[2021-09-16 18:00] VITALS: BP 137/72
[2021-09-16 20:40] LABS: URINE AMPHETAMINE SCREEN POSITIVE (Neg); URINE BARBITUATE SCREEN NEGATIVE (Neg); URINE BENZODIAZEPINES SCREEN NEGATIVE (Neg); URINE CANNABINOID SCREEN NEGATIVE (Neg); URINE COCAINE SCREEN NEGATIVE (Neg); URINE METHADONE SCREEN NEGATIVE (Neg); URINE OPIATE SCREEN NEGATIVE (Neg); URINE PHENCYCLIDINE SCREEN NEGATIVE (Neg)
[2021-09-16] MEDS ORDERED: temazepam 15mg capsule PO PRN (21:00)
[2021-09-16 22:00] VITALS: BP 105/60
[2021-09-17 02:00] VITALS: BP 134/73
[2021-09-17 06:37] LABS: BASOPHILS # (AUTO) 0.1 X10'3 (0-0.2); BASOPHILS % (AUTO) 0.9 % (0-1); EOSINOPHILS # (AUTO) 1.4 X10'3 (0-0.9); EOSINOPHILS % (AUTO) 15.9 % (0-6); HEMATOCRIT 37.5 % (35.0-45.0); HEMOGLOBIN 12.3 g/dl (12.0-16.0); LYMPHOCYTES # (AUTO) 1.7 X10'3 (1.1-4.8); LYMPHOCYTES % (AUTO) 19.5 % (21-51); MEAN CORPUSCULAR HEMOGLOBIN 29.2 PG (27.0-31.0); MEAN CORPUSCULAR HGB CONC 32.9 g/dL (33.0-36.5); MEAN CORPUSCULAR VOLUME 88.8 FL (78-98); MEAN PLATELET VOLUME 8.2 FL (7.4-10.4); MONOCYTES # (AUTO) 0.7 X10'3 (0-0.9); MONOCYTES % (AUTO) 7.6 % (2-12); NEUTROPHILS % (AUTO) 56.1 % (42-75); PLATELET COUNT 256 X10'3 (140-440); RED BLOOD COUNT 4.22 X10'6 (4.20-5.60); RED CELL DISTRIBUTION WIDTH 17.8 % (11.5-14.5)
[2021-09-17 06:46] LABS: ALANINE AMINOTRANSFERASE 78 U/L (12-78); ALBUMIN 2.4 G/DL (3.4-5.0); ALBUMIN/GLOBULIN RATIO 0.8 (1.1-1.5); ALKALINE PHOSPHATASE 98 IU/L (46-116); ANION GAP 3 (8-16); ASPARTATE AMINO TRANSFERASE 37 U/L (10-37); BILIRUBIN,TOTAL 0.7 MG/DL (0.1-1.0); BLOOD UREA NITROGEN 32 MG/DL (7-18); BUN/CREATININE RATIO 24.1 (6.6-38.0); CHLORIDE 104 MMOL/L (99-107); CHOL/HDL RATIO 3.8 (0.00-4.99); CHOLESTEROL 92 MG/DL (0-200); CREATININE 1.33 MG/DL (0.40-0.90); GLUCOSE 136 MG/DL (70-104); HDL CHOLESTEROL 24 MG/DL (35-60); LDL CHOLESTEROL 56 MG/DL (50-100); POTASSIUM 3.5 MMOL/L (3.5-5.1); SODIUM 134 MMOL/L (135-145); TOTAL PROTEIN 5.5 G/DL (6.4-8.2); TRIGLYCERIDES 67 MG/DL (20-135); eGFR 42 ML/MIN
[2021-09-17 07:00] VITALS: BP 135/87
[2021-09-17] MEDS: K and/or MAG REPLACEMENT MC SCH (08:00)
[2021-09-17] MEDS: furosemide 20 MG/2 ML vial IV SCH (08:26)
[2021-09-17] MEDS: amLODIPine 5mg tablet PO SCH (08:27)
[2021-09-17] MEDS: carVEDilol 12.5mg tablet PO SCH (08:27)
[2021-09-17] MEDS: lisinopril 20mg tablet PO SCH (08:28)
[2021-09-17] MEDS: heparin, porcine 5000 units/ml vial SQ SCH (08:28)
[2021-09-17] MEDS ORDERED: EMPAGLIFLOZIN 10 MG TABLET PO SCH (10:30)
[2021-09-17 11:00] VITALS: BP 104/77
[2021-09-17] MEDS ORDERED: CARV-50 PO (12:41)
[2021-09-17] MEDS ORDERED: FURO20TA4 PO (12:41)
[2021-09-17] MEDS ORDERED: EMPA10TA PO (12:45)
[2021-09-17] MEDS ORDERED: SACU1TAB PO (15:03)
[2021-09-17 16:10] VITALS: BP 122/73
[2021-09-17 16:11] VITALS: BP 122/73
[2021-09-18] MEDS ORDERED: furosemide 20MG tablet PO SCH (08:00)
[2021-09-20] MEDS ORDERED: sacubitril/valsartan 24mg-26mg tablet PO SCH (20:00)
== END 2021-09-17 16:20 | disposition home or self-care (01) | DRG 194 ==
LOC: ER 05:25 → ED HOLD 07:22 → PCU 3S 09:23
PROVIDERS: ADMIT Internal Medicine; ATTEND Internal Medicine
DX: I13.0 Hypertensive heart and chronic kidney disease with heart failure and stage 1 through stage 4 chronic kidney disease, or unspecified chronic kidney disease (principal); I42.0 Dilated cardiomyopathy; E11.22 Type 2 diabetes mellitus with diabetic chronic kidney disease; I50.23 Acute on chronic systolic (congestive) heart failure; E78.5 Hyperlipidemia, unspecified; I25.10 Atherosclerotic heart disease of native coronary artery without angina pectoris; I44.7 Left bundle-branch block, unspecified; F17.210 Nicotine dependence, cigarettes, uncomplicated; F15.10 Other stimulant abuse, uncomplicated; F12.90 Cannabis use, unspecified, uncomplicated; N18.30 Chronic kidney disease, stage 3 unspecified; Z79.899 Other long term (current) drug therapy; Z82.41 Family history of sudden cardiac death; Z82.49 Family history of ischemic heart disease and other diseases of the circulatory system; Z82.5 Family history of asthma and other chronic lower respiratory diseases; Z86.711 Personal history of pulmonary embolism; Z90.710 Acquired absence of both cervix and uterus; Z88.8 Allergy status to other drugs, medicaments and biological substances; Z71.6 Tobacco abuse counseling; Z98.51 Tubal ligation status; Z71.51 Drug abuse counseling and surveillance of drug abuser
CPT/HCPCS: 36415; 71045; 80053; 80061; 80305; 82948; 83880; 84484; 85025; 93005; 93306; 96374; 96375; 99285; G0378; J1644; J1940; J3490

== ENCOUNTER 2024-02-28 20:38 | Inpatient (IN) | payer MEDICAID ==
[~2024-02-28] VITALS: Ht 162.6 cm; Wt 104.0 kg
[~2024-02-28 20:38] MED LIST changes: -AMLO5TAB16 PO; +ASPI-1071 PO; +ATOR20TA66 PO; +CARV-50 PO; -CARV25TA56 PO; +EMPA10TA PO; -FURO-150 PO; +FURO40TA4 PO; -LISI20TA28 PO; +SACU1TAB PO; +SPIR25TA5 PO; +[UNRECOGNIZED DRUG - OTHER] PO
[2024-02-28 21:47] LABS: BASOPHILS # (AUTO) 0.1 X10'3 (0-0.2); BASOPHILS % (AUTO) 0.8 % (0-1); EOSINOPHILS # (AUTO) 1.9 X10'3 (0-0.9); EOSINOPHILS % (AUTO) 14.4 % (0-6); HEMATOCRIT 43.4 % (35.0-45.0); HEMOGLOBIN 14.4 g/dl (12.0-16.0); LYMPHOCYTES # (AUTO) 2.5 X10'3 (1.1-4.8); LYMPHOCYTES % (AUTO) 19.6 % (21-51); MEAN CORPUSCULAR HEMOGLOBIN 30.1 PG (27.0-31.0); MEAN CORPUSCULAR HGB CONC 33.2 g/dL (33.0-36.5); MEAN CORPUSCULAR VOLUME 90.6 FL (78-98); MEAN PLATELET VOLUME 8.5 FL (7.4-10.4); MONOCYTES # (AUTO) 0.8 X10'3 (0-0.9); MONOCYTES % (AUTO) 5.8 % (2-12); NEUTROPHILS # (AUTO) 7.7 X10'3 (1.8-7.7); NEUTROPHILS % (AUTO) 59.4 % (42-75); PLATELET COUNT 228 X10'3 (140-440); RED BLOOD COUNT 4.79 X10'6 (4.20-5.60); RED CELL DISTRIBUTION WIDTH 14.8 % (11.5-14.5)
[2024-02-28 21:59] LABS: ALANINE AMINOTRANSFERASE 20 U/L (12-78); ALBUMIN/GLOBULIN RATIO 0.7 (1.1-1.5); ALKALINE PHOSPHATASE 148 IU/L (46-116); ANION GAP 7 (8-16); ASPARTATE AMINO TRANSFERASE 17 U/L (10-37); BILIRUBIN,TOTAL 0.2 MG/DL (0.1-1.0); BLOOD UREA NITROGEN 19 MG/DL (7-18); BUN/CREATININE RATIO 13.2 (10.0-20.0); CALCIUM 9.1 MG/DL (8.5-10.1); CHLORIDE 103 MMOL/L (99-107); CREATININE 1.44 MG/DL (0.40-0.90); GLUCOSE 159 MG/DL (70-104); SODIUM 138 MMOL/L (135-145); TOTAL CARBON DIOXIDE 28.1 MMOL/L (24-32); TOTAL PROTEIN 7.6 G/DL (6.4-8.2); eCRCL 40 ML/MIN; eGFR 38 ML/MIN
[2024-02-28 22:08] LABS: PRO BRAIN NATRIURETIC PEPTIDE 11935 PG/ML (0-125)
[2024-02-28] MEDS: ipratropium/albuterol 3ml nebule NEB ONE (23:55)
[2024-02-29] VITALS (20 sets, daily range): BP systolic 101–139; BP diastolic 57–80; PULSE 74–89; RESP 16–22; TEMP 97.3–98.2; O2SAT 92–99
[2024-02-29] MEDS: hydrALAZINE 20mg/ml inj. IV ONE (00:04)
[2024-02-29] MEDS: methylPREDNISolone sod succ 125mg/2ml vial IV ONE (00:06)
[2024-02-29] MEDS: proCHLORperazine 10 MG/2 ml inj IV ONE (00:09)
[2024-02-29] MEDS: acetaminophen 1,000mg/100ml IV 100 ML IV ONE (00:12)
[2024-02-29] MEDS: levoFLOXACIN-Levaquin 750MG/D5 150 ML IV STA (00:22)
[2024-02-29] MEDS ORDERED: potassium Cl 40MEQ/1/2NS 520ml 520 ML IV PRN (01:25)
[2024-02-29] MEDS ORDERED: potassium Cl 20 mEq SR tablet PO PRN ×2 (01:25)
[2024-02-29] MEDS ORDERED: ondansetron/PF 4mg/2ml inj IV PRN (01:25)
[2024-02-29] MEDS ORDERED: magnesium sulf-water 4G/100mL 100 ML IV PRN (01:25)
[2024-02-29] MEDS ORDERED: magnesium Cl slow-release 64mg tablet PO PRN (01:25)
[2024-02-29] MEDS ORDERED: magnesium sulf-water 2g/50mL 50 ML IV PRN (01:25)
[2024-02-29] MEDS ORDERED: magnesium hydroxide 30ml (MOM) UD suspension PO PRN (01:25)
[2024-02-29] MEDS ORDERED: mag hydrox/Alum hydrox/simeth 30ml oral suspension PO PRN (01:25)
[2024-02-29] MEDS: furosemide 10 MG/1 ML 10ml inj IV ONE ×2 (02:29)
[2024-02-29] MEDS ORDERED: DOCU-148 PO (02:34)
[2024-02-29] MEDS ORDERED: SPIR25TA5 PO (02:35)
[2024-02-29] MEDS ORDERED: FURO40TA4 PO (02:36)
[2024-02-29] MEDS ORDERED: OMEP20CA16 PO (02:37)
[2024-02-29] MEDS ORDERED: CARV25TA2 PO (02:39)
[2024-02-29] MEDS ORDERED: HYDR-3686 PO (02:39)
[2024-02-29] MEDS ORDERED: APIX5TAB3 PO (02:40)
[2024-02-29] MEDS ORDERED: FLUO-167 PO (02:41)
[2024-02-29] MEDS: furosemide 10 MG/1 ML 10ml inj IV SCH ×2 (02:48→20:52)
[2024-02-29 05:28] LABS: MAGNESIUM 2.1 MG/DL (1.5-2.4)
[2024-02-29] MEDS: acetaminophen 325mg tablet PO PRN (07:01)
[2024-02-29] MEDS ORDERED: aminophylline 250mg/10ml inj. IV PRN (07:15)
[2024-02-29] MEDS ORDERED: metoprolol tartrate 1mg/ml inj IV PRN (07:15)
[2024-02-29] MEDS ORDERED: nitroGLYCERIN 0.4mg SUBLingual tab SL PRN (07:15)
[2024-02-29] MEDS: K and/or MAG REPLACEMENT MC SCH (08:00)
[2024-02-29] MEDS: lactose-reduced food (Ensure Enlive) - 237ml bottle PO SCH (08:00)
[2024-02-29] MEDS: docusate sod 100mg capsule PO SCH ×2 (08:00→08:25)
[2024-02-29] MEDS: apixaban 5mg tablet PO SCH (08:23)
[2024-02-29] MEDS: hydrOXYzine 25 MG tablet PO SCH (08:24)
[2024-02-29] MEDS: atorvastatin 20mg tablet PO SCH (08:24)
[2024-02-29] MEDS: FLUoxetine 20mg capsule PO SCH (08:24)
[2024-02-29] MEDS: pantoprazole 40mg Tablet.DR PO SCH (08:24)
[2024-02-29] MEDS: carVEDilol 12.5mg tablet PO SCH (08:24)
[2024-02-29 09:26] LABS: BILIRUBIN,URINE NEGATIVE (Neg); CLARITY,URINE TURBID (Clear); GLUCOSE, URINE NEGATIVE (Neg); KETONES,URINE TRACE mg/dl (Neg); LEUKOCYTE ESTERASE ,URINE NEGATIVE (Neg); NITRITES, URINE POSITIVE (Neg); OCCULT BLOOD,URINE NEGATIVE (Neg); PROTEIN,URINE TRACE mg/dl (Neg); UROBILINOGEN,URINE 0.2 E.U/dL (0.2-1.0)
[2024-02-29 09:33] LABS: COLOR,URINE STRAW (Yellow); UA COLLECTION TYPE VOIDED
[2024-02-29 09:35] LABS: AMORPHOUS URATES 4+; BACTERIA,URINE 4+ /HPF (Neg); CAL OXALATE CRYSTALS 4+ /HPF (NEGATIVE); SODIUM,URINE RANDOM 52 MEQ/L; SQUAMOUS EPITHELIAL CELL,UR MODERATE /LPF (FEW); URINE AMPHETAMINE SCREEN NEGATIVE (Neg); URINE BARBITUATE SCREEN NEGATIVE (Neg); URINE BENZODIAZEPINES SCREEN NEGATIVE (Neg); URINE CANNABINOID SCREEN NEGATIVE (Neg); URINE COCAINE SCREEN NEGATIVE (Neg); URINE METHADONE SCREEN NEGATIVE (Neg); URINE OPIATE SCREEN NEGATIVE (Neg); URINE PHENCYCLIDINE SCREEN NEGATIVE (Neg); WBC,URINE 0-4 /HPF (0-4)
[2024-02-29 09:36] LABS: RBC,URINE 0-2 /HPF (0-2)
[2024-02-29 09:41] LABS: OSMOLALITY UA 720 MOSM/K (50-1400)
[2024-02-29] MEDS: regadenoson 0.4mg/5ml syringe IV PRN (09:57)
[2024-02-29 10:25] LABS: UA EOSINOPHILS NO EOS /HPF
[2024-02-29] MEDS: heparin, porcine 5000 units/ml vial SQ SCH (11:37)
[2024-02-29] MEDS: spironolactone 25 MG tablet PO SCH (11:39)
[2024-02-29] MEDS: sacubitril/valsartan 24mg-26mg tablet PO SCH (11:40)
[2024-02-29] MEDS: CefTRIAXone/D5W-Rocephin 1gm 50 ML IV SCH (11:44)
[2024-02-29] MEDS ORDERED: azithromycin 250mg tablet PO SCH (13:15)
[2024-02-29] MEDS: ipratropium/albuterol 3ml nebule NEB SCH (15:01)
[2024-02-29] MEDS ORDERED: FLU VACC TS2024-25(6MOS UP)/PF 45 MCG/0.5 ML SYRINGE IMVAC ONE (15:10)
[2024-02-29] MEDS: methylPREDNISolone sod succ/PF 40mg inj. IV SCH (17:00)
[2024-02-29] MEDS: EMPAGLIFLOZIN 10 MG TABLET PO SCH (20:48)
[2024-02-29] MEDS: DOXYCYCLINE 100MG CAPSULE PO SCH (20:48)
[2024-02-29] MEDS: HYDROcodone/acetaminophen 5mg/325mg tablet PO ONE (20:49)
[2024-02-29] MEDS ORDERED: PREG25CA19 PO (23:40)
[2024-03-01] VITALS (10 sets, daily range): BP systolic 99–140; BP diastolic 54–77; PULSE 65–86; RESP 14–20; TEMP 96.7–98.6; O2SAT 91–97
[2024-03-01] MEDS: nystatin 15 GM powder TP ONE (00:22)
[2024-03-01 07:53] LABS: BASOPHILS # (AUTO) 0.1 X10'3 (0-0.2); BASOPHILS % (AUTO) 0.3 % (0-1); EOSINOPHILS % (AUTO) 0 % (0-6); HEMATOCRIT 44.2 % (35.0-45.0); HEMOGLOBIN 14.5 g/dl (12.0-16.0); LYMPHOCYTES # (AUTO) 1.5 X10'3 (1.1-4.8); LYMPHOCYTES % (AUTO) 5.7 % (21-51); MEAN CORPUSCULAR HEMOGLOBIN 29.5 PG (27.0-31.0); MEAN CORPUSCULAR HGB CONC 32.7 g/dL (33.0-36.5); MEAN PLATELET VOLUME 8.8 FL (7.4-10.4); MONOCYTES # (AUTO) 0.5 X10'3 (0-0.9); MONOCYTES % (AUTO) 1.8 % (2-12); NEUTROPHILS # (AUTO) 23.7 X10'3 (1.8-7.7); NEUTROPHILS % (AUTO) 92.2 % (42-75); PLATELET COUNT 258 X10'3 (140-440); RED BLOOD COUNT 4.91 X10'6 (4.20-5.60); RED CELL DISTRIBUTION WIDTH 14.9 % (11.5-14.5)
[2024-03-01 08:24] LABS: ALANINE AMINOTRANSFERASE 16 U/L (12-78); ALBUMIN 3.1 G/DL (3.4-5.0); ALBUMIN/GLOBULIN RATIO 0.7 (1.1-1.5); ALKALINE PHOSPHATASE 135 IU/L (46-116); ANION GAP 11 (8-16); ASPARTATE AMINO TRANSFERASE 13 U/L (10-37); BILIRUBIN,TOTAL 0.3 MG/DL (0.1-1.0); BLOOD UREA NITROGEN 46 MG/DL (7-18); BUN/CREATININE RATIO 27.1 (10.0-20.0); CALCIUM 9.5 MG/DL (8.5-10.1); CHLORIDE 97 MMOL/L (99-107); GLUCOSE 221 MG/DL (70-104); MAGNESIUM 2.2 MG/DL (1.5-2.4); POTASSIUM 4.1 MMOL/L (3.5-5.1); SODIUM 132 MMOL/L (135-145); TOTAL CARBON DIOXIDE 24.2 MMOL/L (24-32); TOTAL PROTEIN 7.3 G/DL (6.4-8.2); eCRCL 34 ML/MIN; eGFR 32 ML/MIN
[2024-03-01 08:29] LABS: WHITE BLOOD COUNT 25.7 X10'3 (4.5-11.0)
[2024-03-01] MEDS ORDERED: DEXTROSE 15 GM of carb/4 tabs (each vial/BOTTLE has 4 tablets) PO PRN ×2 (08:40)
[2024-03-01] MEDS ORDERED: glucagon, human recombinant 1mg kit SUBCUT PRN (08:40)
[2024-03-01] MEDS ORDERED: dextrose 50%-water 50ml dispensing syringe IV PRN ×2 (08:40)
[2024-03-01] MEDS: normal saline 1000ml 1,000 ML IV SCH (08:45)
[2024-03-01] MEDS: acetaminophen 325mg tablet PO SCH (08:58)
[2024-03-01] MEDS: nystatin 15 GM powder TP SCH (09:06)
[2024-03-01 09:31] LABS: BASOPHILS % (AUTO) 0.1 % (0-1); EOSINOPHILS % (AUTO) 0 % (0-6); HEMATOCRIT 48.6 % (35.0-45.0); LYMPHOCYTES # (AUTO) 1.4 X10'3 (1.1-4.8); LYMPHOCYTES % (AUTO) 5.6 % (21-51); MEAN CORPUSCULAR HGB CONC 32.8 g/dL (33.0-36.5); MEAN CORPUSCULAR VOLUME 91.4 FL (78-98); MEAN PLATELET VOLUME 9.1 FL (7.4-10.4); MONOCYTES # (AUTO) 0.6 X10'3 (0-0.9); MONOCYTES % (AUTO) 2.4 % (2-12); NEUTROPHILS # (AUTO) 23.8 X10'3 (1.8-7.7); NEUTROPHILS % (AUTO) 91.9 % (42-75); PLATELET COUNT 278 X10'3 (140-440); RED BLOOD COUNT 5.32 X10'6 (4.20-5.60)
[2024-03-01 09:41] LABS: PLATELET ESTIMATE NORMAL; TOTAL CELLS COUNTED 100
[2024-03-01 11:32] LABS: WHITE BLOOD COUNT 25.9 X10'3 (4.5-11.0)
[2024-03-01] MEDS: INSULIN LISPRO 100 UNIT/ML INSULN.PEN MULTI-DOSE SQ SCH (12:00)
[2024-03-01] MEDS: normal saline 1000ml 1,000 ML IV ONE ×2 (13:50→13:54)
[2024-03-01] MEDS ORDERED: MEROPENEM 1GM/NS 100ML IVPB 100 ML IV SCH (16:00)
[2024-03-01] MEDS: methylPREDNISolone sod succ/PF 40mg inj. IV SCH (19:50)
[2024-03-01] MEDS: insulin glargine (Lantus) pen - multi-dose SQ SCH (21:00)
[2024-03-02] VITALS (9 sets, daily range): BP systolic 117–165; BP diastolic 54–92; PULSE 54–92; RESP 12–20; TEMP 97.1–98.4; O2SAT 93–99
[2024-03-02] MEDS: acetaminophen 1,000mg/100ml IV 100 ML IV ONE (00:45)
[2024-03-02 07:53] LABS: ALANINE AMINOTRANSFERASE 18 U/L (12-78); ALBUMIN 2.6 G/DL (3.4-5.0); ALBUMIN/GLOBULIN RATIO 0.7 (1.1-1.5); ALKALINE PHOSPHATASE 111 IU/L (46-116); ANION GAP 7 (8-16); ASPARTATE AMINO TRANSFERASE 12 U/L (10-37); BILIRUBIN,TOTAL 0.2 MG/DL (0.1-1.0); BLOOD UREA NITROGEN 53 MG/DL (7-18); BUN/CREATININE RATIO 34.6 (10.0-20.0); CALCIUM 8.5 MG/DL (8.5-10.1); CHLORIDE 104 MMOL/L (99-107); CREATININE 1.53 MG/DL (0.40-0.90); GLUCOSE 204 MG/DL (70-104); MAGNESIUM 2.4 MG/DL (1.5-2.4); POTASSIUM 4.4 MMOL/L (3.5-5.1); SODIUM 137 MMOL/L (135-145); TOTAL CARBON DIOXIDE 26.1 MMOL/L (24-32); TOTAL PROTEIN 6.1 G/DL (6.4-8.2); eCRCL 38 ML/MIN; eGFR 36 ML/MIN
[2024-03-02 08:08] LABS: BASOPHILS % (AUTO) 0.1 % (0-1); EOSINOPHILS % (AUTO) 0 % (0-6); HEMATOCRIT 41.9 % (35.0-45.0); HEMOGLOBIN 13.8 g/dl (12.0-16.0); LYMPHOCYTES # (AUTO) 0.9 X10'3 (1.1-4.8); LYMPHOCYTES % (AUTO) 4.4 % (21-51); MEAN CORPUSCULAR HGB CONC 32.9 g/dL (33.0-36.5); MEAN CORPUSCULAR VOLUME 91.2 FL (78-98); MEAN PLATELET VOLUME 9.3 FL (7.4-10.4); MONOCYTES # (AUTO) 0.4 X10'3 (0-0.9); MONOCYTES % (AUTO) 2.2 % (2-12); NEUTROPHILS # (AUTO) 18.8 X10'3 (1.8-7.7); NEUTROPHILS % (AUTO) 93.3 % (42-75); PLATELET COUNT 193 X10'3 (140-440); RED CELL DISTRIBUTION WIDTH 15.1 % (11.5-14.5); WHITE BLOOD COUNT 20.1 X10'3 (4.5-11.0)
[2024-03-02] MEDS ORDERED: PRED10TA23 PO ×2 (12:41→13:56)
[2024-03-02] MEDS ORDERED: EMPA10TA PO (12:41)
[2024-03-02] MEDS ORDERED: ALBU2.5V7 NEB (12:41)
[2024-03-02] MEDS ORDERED: ACET-1008 PO (13:58)
[2024-03-02] MEDS: ketorolac trometh 30MG/ML vial 30 MG/ML VIAL IV PRN (19:50)
[2024-03-02] MEDS: guaiFENesin 200 MG/10 ML oral syrup UD cup PO SCH (19:51)
[2024-03-02] MEDS: insulin glargine (Lantus) pen - multi-dose SQ SCH (22:49)
[2024-03-03 02:00] VITALS: BP 134/78; PULSE 58; RESP 12; TEMP 98.2; O2SAT 98
[2024-03-03 06:00] VITALS: BP 144/99; PULSE 67; RESP 18; TEMP 97.9; O2SAT 99
[2024-03-03 07:54] LABS: BASOPHILS % (AUTO) 0.1 % (0-1); EOSINOPHILS % (AUTO) 0 % (0-6); HEMATOCRIT 41.7 % (35.0-45.0); HEMOGLOBIN 13.5 g/dl (12.0-16.0); LYMPHOCYTES # (AUTO) 1.4 X10'3 (1.1-4.8); LYMPHOCYTES % (AUTO) 7.9 % (21-51); MEAN CORPUSCULAR HEMOGLOBIN 29.6 PG (27.0-31.0); MEAN CORPUSCULAR HGB CONC 32.4 g/dL (33.0-36.5); MEAN CORPUSCULAR VOLUME 91.2 FL (78-98); MEAN PLATELET VOLUME 9.3 FL (7.4-10.4); MONOCYTES % (AUTO) 5.8 % (2-12); NEUTROPHILS # (AUTO) 15.2 X10'3 (1.8-7.7); NEUTROPHILS % (AUTO) 86.2 % (42-75); PLATELET COUNT 197 X10'3 (140-440); RED BLOOD COUNT 4.57 X10'6 (4.20-5.60); WHITE BLOOD COUNT 17.6 X10'3 (4.5-11.0)
[2024-03-03 08:00] VITALS: RESP 18; O2SAT 99
[2024-03-03] MEDS: methylPREDNISolone sod succ/PF 40mg inj. IV SCH (08:17)
[2024-03-03 08:18] LABS: ANION GAP 4 (8-16); BLOOD UREA NITROGEN 61 MG/DL (7-18); BUN/CREATININE RATIO 33.9 (10.0-20.0); CALCIUM 8.2 MG/DL (8.5-10.1); CHLORIDE 102 MMOL/L (99-107); GLUCOSE 169 MG/DL (70-104); MAGNESIUM 2.4 MG/DL (1.5-2.4); POTASSIUM 4.3 MMOL/L (3.5-5.1); SODIUM 137 MMOL/L (135-145); TOTAL CARBON DIOXIDE 30.8 MMOL/L (24-32); eCRCL 32 ML/MIN; eGFR 30 ML/MIN
[2024-03-03 08:19] LABS: ALANINE AMINOTRANSFERASE 21 U/L (12-78); ALBUMIN 2.5 G/DL (3.4-5.0); ALBUMIN/GLOBULIN RATIO 0.7 (1.1-1.5); ALKALINE PHOSPHATASE 102 IU/L (46-116); ASPARTATE AMINO TRANSFERASE 10 U/L (10-37); BILIRUBIN,TOTAL 0.2 MG/DL (0.1-1.0); TOTAL PROTEIN 5.9 G/DL (6.4-8.2)
[2024-03-03] MEDS: ipratropium/albuterol 3ml nebule NEB SCH (10:30)
[2024-03-03 11:00] VITALS: BP 139/70; PULSE 63; RESP 16; TEMP 97.9; O2SAT 95
== END 2024-03-03 13:24 | disposition home or self-care (01) | DRG 194 ==
LOC: ER 20:38 → ED HOLD 02-29 01:26 → EDBEDREQ 02-29 07:21 → EDBEDREQTM 02-29 08:32 → PCU 3S 02-29 08:55
PROVIDERS: ADMIT Internal Medicine Critical Care Medicine; ATTEND Family Medicine
PROC: 4A02XM4 Measurement of Cardiac Total Activity, External Approach (ICD-10-PCS; principal; 2024-02-29)
PROC: 3E033HZ Introduction of Radioactive Substance into Peripheral Vein, Percutaneous Approach (ICD-10-PCS; 2024-02-29)
DX: I13.0 Hypertensive heart and chronic kidney disease with heart failure and stage 1 through stage 4 chronic kidney disease, or unspecified chronic kidney disease (principal); J96.01 Acute respiratory failure with hypoxia; N17.0 Acute kidney failure with tubular necrosis; I21.A1 Myocardial infarction type 2; E88.09 Other disorders of plasma-protein metabolism, not elsewhere classified; D72.829 Elevated white blood cell count, unspecified; E11.22 Type 2 diabetes mellitus with diabetic chronic kidney disease; J44.1 Chronic obstructive pulmonary disease with (acute) exacerbation; I50.23 Acute on chronic systolic (congestive) heart failure; F17.210 Nicotine dependence, cigarettes, uncomplicated; Z66 Do not resuscitate; F15.90 Other stimulant use, unspecified, uncomplicated; K57.30 Diverticulosis of large intestine without perforation or abscess without bleeding; N39.0 Urinary tract infection, site not specified; N18.9 Chronic kidney disease, unspecified; M79.81 Nontraumatic hematoma of soft tissue; T38.0X5A Adverse effect of glucocorticoids and synthetic analogues, initial encounter; T43.655A Adverse effect of methamphetamines, initial encounter; E66.3 Overweight; Z68.39 Body mass index [BMI] 39.0-39.9, adult; Z82.49 Family history of ischemic heart disease and other diseases of the circulatory system; Z82.5 Family history of asthma and other chronic lower respiratory diseases; Z86.711 Personal history of pulmonary embolism; Z90.710 Acquired absence of both cervix and uterus; Z91.148 Patient's other noncompliance with medication regimen for other reason; Z80.41 Family history of malignant neoplasm of ovary; Z88.1 Allergy status to other antibiotic agents; Y92.89 Other specified places as the place of occurrence of the external cause
CPT/HCPCS: 36415; 71045; 74176; 78452; 80053; 80305; 81001; 82570; 82948; 83036; 83605; 83735; 83880; 83930; 83935; 84145; 84300; 84484; 85007; 85025; 87040; 87077; 87081; 87088; 87186; 87207; 90686; 93005; 93017; 93306; 94640; 94760; 99285; A4314; G0378; J0131; J0360; J0696; J0780; J1644; J1815; J1885; J1940; J1956; J2785; J2919; J7030; J7040; Q0177